=== PATIENT | male | born 1965 | race Caucasian/White ===

== ENCOUNTER 2022-07-21 15:50 | Outpatient (REF) | payer OTHER, SELFPAY ==
--- NOTE | ~2022-07-21 | XR_ITS ---
EXAMINATION: XR BILATERAL HIPS WITH AP PELVIS CLINICAL INFORMATION: Pain COMPARISON: Previous left hip x-ray May 2018 TECHNIQUE: 2 views views of each hip were obtained. FINDINGS: Right: Bone alignment is normal. No fracture or dislocation. There is moderate right hip arthritis with joint space narrowing and osteophyte formation. Soft tissues are unremarkable. Left: Bone alignment is normal. No fracture or dislocation. There is severe left hip arthritis with joint space narrowing and osteophyte formation. This has increased from May 2016 exam. Soft tissues are unremarkable. XR/XR hips EMILY min 3V IMPRESSION: Bilateral hip arthritis, left greater than right.
--- NOTE | ~2022-07-21 | XR_ITS ---
EXAMINATION: XR KNEE AP STANDING CLINICAL INFORMATION: Pain COMPARISON: None TECHNIQUE: AP and lateral view of the knees was obtained. FINDINGS: Right: Bone alignment is normal. No fracture or dislocation. Mild joint space narrowing at the medial femoral tibial joint. Small osteophytes at the patellofemoral joint. Small osteophyte at the quadriceps tendon insertion to the patella. No joint effusion. Left: Bone alignment is normal. No fracture or dislocation. Small osteophytes at the patellofemoral joint. No joint effusion. XR/XR knee standing BI IMPRESSION: Mild bilateral arthritis, right greater than left.
== END 2022-07-21 15:51 | disposition home or self-care (01) ==
LOC: HO.HMGCX 15:50
PROVIDERS: PCP Internal Medicine; Visit Provider Internal Medicine
DX: M25.551 Pain in right hip (principal); M25.552 Pain in left hip; M25.561 Pain in right knee; M25.562 Pain in left knee
CPT/HCPCS: 73522; 73565

== ENCOUNTER 2023-06-27 06:01 | Outpatient (REF) | payer OTHER, SELFPAY ==
[2023-06-27 12:00] LABS: Estimated Average Glucose 143 mg/dL; Hemoglobin A1c % 6.6 % (<6.0)
[2023-06-27 12:08] LABS: Alanine Aminotransferase 20 U/L (0-40); Anion Gap 11 (12-20); Aspartate Amino Transferase 17 U/L (5-37); Blood Urea Nitrogen 16 mg/dL (9-16); Calcium 9.2 mg/dL (8.4-10.2); Carbon Dioxide 29 mmol/L (22-29); Chloride 107 mmol/L (96-108); Cholesterol 131 mg/dL (<200); Estimated Glomerular Filt Rate > 60; Glucose Fasting 109 mg/dL (60-99); HDL Cholesterol 50 mg/dL (>40); LDL Cholesterol Calculated 67 mg/dL (<100); Potassium 4.6 mmol/L (3.3-5.1); Sodium 142 mmol/L (135-145); Triglycerides 70 mg/dL (<150)
== END 2023-06-27 06:02 | disposition home or self-care (01) ==
LOC: HO.HMGCLDS 06:01
PROVIDERS: PCP Internal Medicine; Visit Provider Internal Medicine
DX: E66.01 Morbid (severe) obesity due to excess calories (principal); I10 Essential (primary) hypertension; E78.5 Hyperlipidemia, unspecified; E11.65 Type 2 diabetes mellitus with hyperglycemia
CPT/HCPCS: 36415; 80048; 80061; 83036; 84450; 84460

== ENCOUNTER 2023-07-04 13:04 | Outpatient (AMB) | payer OTHER, SELFPAY ==
[2023-07-04 13:11] VITALS: BP 126/80; PULSE 83; O2SAT 97; BMI 38.8
--- NOTE | 2023-07-04 13:11 | MHC.PC.OV ---
Vital Signs 07/04/23 13:11 Height 5 ft 4 in Weight 226 lb BMI 38.8 BP 126/80 Blood Pressure Location Lt brachial Position Sitting Pulse 83 Pulse Source Pulse Oximeter Pulse Oximetry (%) 97 Oxygen Delivery Method Room Air Intake Visit Reasons: Followup diabetes, labs Intake Note: Pt is here today for a follow up visit on DM and labs. Allergies Codeine Adverse Reaction (Unknown, Uncoded 07/04/23 13:14) nausea and vomiting Medication List - Last Reconciled 07/04/23 by Sandy Orosco MD aspirin (Adult Low Dose Aspirin) 81 mg PO DAILY blood sugar diagnostic ([employer] Verio test strips) Check blood sugar as directed twice daily before meals empagliflozin (Jardiance) 25 mg PO QAM lancets ([employer] Delica Plus Lancet) test blood sugar twice a day lisinopril 10 mg PO DAILY metformin 1,000 mg PO BID 90 days pravastatin 10 mg PO BEDTIME Tobacco use date assessed: 07/04/23 Dental Screening Dental Screen Date: 07/04/23 Did you have a dental visit in the last 12 months?: Yes Did you have a dental problem in the last 6 months where you did not have access to dental care?: No Was dental information given to patient?: Patient has dentist HPI Followup diabetes, labs HPI Details 57-year-old male with diabetes mellitus, hyperlipidemia, obesity osteoarthritis in hips, here today for follow-up. He has been compliant with taking his medications, with recent hemoglobin A1c now at 6.7% and fasting lipids are within normal limits. He has been compliant with taking his medication and has been following recommended diet. He is scheduled for his left total hip arthroplasty at [facility] in August [address] Kenyon. He is up-to-date with his diabetes retinopathy screening. Up-to-date with his vaccinations including pneumonia vaccine and COVID booster, has not yet had his flu shot. [facility] Medical History Controlled diabetes mellitus type II without complication Osteoarthritis, hip, bilateral Knee pain, bilateral Hip pain, bilateral Morbid obesity Essential hypertension Dyslipidemia Surgical History Hx of umbilical hernia repair Family History Father No problems noted. Brother No problems noted. Mother No problems noted. Housing: House Alcohol intake: never Patient Tobacco Use Status: Never used Tobacco e-Cigarette/Vaping Use: Never Used Second Hand Smoke Exposure: No service: No Current occupational status: employed Cognitive needs: No Hearing needs: No Vision needs: Yes Questionnaire PHQ-9 Over the last 2 weeks, how often have you been bothered by any of the following problems? Depression Screening Interpretation: Negative Depression Screening Done: Yes Source: Developed by Drs. Real Page, Roxie Victor, Zbigniew Ceja and colleagues, with an educational victorino from [employer]. Thrive Questionnaire Date Thrive assessed: 12/16/22 AISHA-7 AMB Questionnaire AISHA-7 Date AISHA - 7 assessed: 12/16/22 Source: Developed by Drs. Real Page, Roxie Victor, Zbigniew Ceja and colleagues, with an educational victorino from [employer]. Review of Systems Const Denies malaise and Denies weakness Eyes Details: goes to [employer] Denies change in vision ENT Denies dysphagia, Denies dizziness, Denies dry mouth, Denies otalgia, Denies hoarseness, Denies epistaxis, Denies nasal congestion, Denies odynophagia, Denies post nasal drip and Denies sore throat Card Denies chest pain, Denies chest pain with activity, Denies irregular heart rhythm, Denies lightheadedness, Denies palpitations, Denies dyspnea and Denies dyspnea on exertion Resp Denies cough, Denies pain on inspiration, Denies dyspnea, Denies dyspnea on exertion and Denies wheezing GI Denies abdominal pain, Denies melena, Denies hematochezia, Denies change in bowel habits, Denies dysphagia, Denies heartburn, Denies nausea and Denies odynophagia Denies hematuria, Denies oliguria, Denies difficulty urinating, Denies dysuria, Denies penile discharge, Denies testicular mass, Denies urinary hesitancy and Denies urinary incontinence Musc Reports as per HPI and Denies tingling Skin/Breast Reports system reviewed and no additional complaints, except as documented Neuro Reports no additional complaints, Denies dizziness, Denies lack of coordination, Denies focal weakness, Denies Other visual disturbances, Denies convulsions, Denies tingling, Denies paresthesias and Denies weakness Psych Reports no additional complaints Endo Denies cold intolerance, Denies polyphagia, Denies polydipsia, Denies polyuria and Denies palpitations Jey/Lymph Denies easy bleeding and Denies easy bruising Aller/Immun Denies seasonal rhinorrhea and Denies wheezing Physical exam (Primary Care) Vital Signs: Last Vital Signs Pulse 83 07/04/23 13:11 BP 126/80 07/04/23 13:11 Pulse Ox 97 07/04/23 13:11 Oxygen Delivery Method Room Air 07/04/23 13:11 BMI result Body Mass Index 38.8 BMI Assessment/Plan discussion: High BMI High, discussed plan: lifestyle, weight reduction, dietary and physical activity Tobacco/Smoking Status: Tobacco use Status Tobacco use date assessed 07/04/23 07/04/23 13:16 Patient Tobacco Use Status Never used Tobacco 07/04/23 13:16 e-Cigarette/Vaping Use Never Used 07/04/23 13:16 Depression Screening Interpretation: Negative Thrive Assessment: Date of Thrive Assessment Date Thrive assessed 12/16/22 07/04/23 13:16 Const General: comfortable and alert Nutritional Appearance: obese morbidly obese Eyes Other: [place] palpebral conjunctiva, anicteric, extraocular muscles full and intact Neck Neck: Yes full ROM, Yes no lymphadenopathy and Yes supple Thyroid: Thyroid normal Resp Effort & Inspection: normal respiratory effort and able to speak in complete sentences Auscultation: clear to auscultation bilaterally Cardio Rate: regular rate Rhythm: regular rhythm Heart sounds: S1 normal heart sound present and S2 normal heart sound present GI Inspection: Yes obesity Palpation (GI): Soft to palpation, nontender and no guarding Auscultation: normal bowel sounds General: Yes CVA tenderness Male General Exam: Yes normal external exam Back/Spine/Pelvis Back: CVA tenderness and No back tenderness Skin General skin exam: no rashes or lesions noted Neuro Other: alert oriented x3, no acute cardiorespiratory distress ambulatory with normal gait General: normal sensation to monofilament Extrem General: Yes full ROM, Yes no joint enlargement and Yes normal gait Psych Appearance: grossly normal Mental Status: mental status grossly normal Speech and movement: Normal speech and movement present Affect: normal affect Attitude: cooperative Thought process: Normal thought process present Thought content: Normal thought content present Office Procedures Flu Questionnaire Does the patient have a severe egg allergy?: No Does the patient have severe life threatening allergies?: No Does the patient have a fever or illness today?: No Has the patient ever had Guillain-Creighton Syndrome?: No Has the patient ever had any past reaction to a flu shot?: No Immunizations flu vacc [id number] 6mos up(PF) 60 mcg(15 mcgx4)/0.5 mL IM syringe Performing Provider: Sandy Orosco MD Performing Location: [facility] Administered by: Lisette Sheridan CMA on 07/04/23 13:47 Dose Route Admin Location Dispensed Lot Number Expiration Date 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 IM Left Deltoid 0.5 mL [id number] 02/11/24 [id number] [employer] VIS Given Date VIS Provided VIS Publication Date 07/04/23 Single Vaccine 21 Eligibility Eligibility Date Funding Source Not VFC Eligible 07/04/23 Private Results Reviewed Results Reviewed: PEC : [id number] JAVIER: 06/27/23 STATUS: COMP REQ : [id number] RECD: 06/27/[address]: Sandy Orosco MD COMP: 06/27/23 ENTERED: 06/27/23-[address]: ORDERED: Met Prof Fast, AST, ALT, Lipid Panel Test Result Flag Reference Site Sodium 142 135-145 mmol/L Potassium 4.6 3.3-5.1 mmol/L CL 107 96-108 mmol/L CO2 29 22-29 mmol/L Gap 11 L 12-20 BUN 16 9-16 mg/dL Creat 0.82 0.5-1.4 mg/dL EGFR > 60 NOTE: For -Ind[place] individuals, multiply the result by 1.210. Chronic Kidney Disease: Estimated GFR < 60 mL/min/1.73m2 Severe Kidney Disease: Estimated GFR < 15 mL/min/1.73m2 FBS 109 H 60-99 mg/dL A fasting glucose from 100-125 mg/dl is considered impaired (pre-diabetes). CA 9.2 8.4-10.2 mg/dL AST (GOT) 17 5-37 U/L ALT (GPT) 20 0-40 U/L Triglyceride 70 <150 mg/dL Desirable Triglyceride: less than 150 mg/dL Borderline High Triglyceride 150-199 mg/dL High Triglyceride: 200-499 mg/dL Very High Triglyceride: greater than or equal to 5OO mg/dL Cholesterol 131 <200 mg/dL Desirable Cholesterol: less than 200 mg/dL Borderline High Cholesterol: 200-239 mg/dL High Cholesterol: greater than 239 mg/dL LDL Calculated 67 <100 mg/dL Desirable LDL: less than 100 mg/dL Near Optimal/Above Optimal LDL: 110-129 mg/dL Borderline High LDL: 130-159 mg/dL High LDL: 160-189 mg/dL Very High LDL: greater than or equal to 190 mg/dL HDL 50 >40 mg/dL Desirable HDL: greater than 40 mg/dL Note: This HDL assay may give artificially low results in patients with liver disease. Laboratory Tests 06/27/23 06:09 Estimat Average Glucose 143 Hemoglobin A1c % 6.6 H Assessment and Plan Assessment & Plan (1) Controlled diabetes mellitus type II without complication: Code(s): E11.9 - Type 2 diabetes mellitus without complications Plan: Recent lab results reviewed with patient, with sugar and hemoglobin A1c stable and at goal. continue to check fasting blood sugar at home, maintain log and bring to next appointment for review. Reinforced diabetic diet and regular exercise with patient. Counseled regarding importance of yearly diabetes retinopathy screening, currently up-to-date. Patient advised to inspect feet daily, for any signs of injury, callus or infection. Compliance with diet and regular exercise again stressed. Blood pressure goal is less than 130/80, goal LDL is less than 100 and goal hemoglobin A1c is less than 7% follow-up appointment made in--3-months, after fasting labs done. Flu vaccine given today (2) Osteoarthritis, hip, bilateral: Code(s): M16.0 - Bilateral primary osteoarthritis of hip Plan: Scheduled for left total hip arthroplasty August [address] Kenyon (3) Morbid obesity: Code(s): E66.01 - Morbid (severe) obesity due to excess calories Plan: Discussed need to increase activity and wt reduction. Recommended focusing on improving your health instead of dieting. : Eat Mediterranean diet, limit foods high in fat, sugar, and calories, eat slowly, pay attention to portion sizes, plan your meals ahead of time, start regular physical activity 150 minutes of moderate intensity exercise or 90 minutes/week of vigorous exercise and increase water intake. (4) Essential hypertension: Code(s): I10 - Essential (primary) hypertension Plan: Blood pressure at goal of less than 130/80. Continue with current medication. Reinforced importance of following a low sodium diet, getting regular exercise, and lowering stress levels. (5) Dyslipidemia: Code(s): E78.5 - Hyperlipidemia, unspecified Plan: Reviewed recent fasting lipid profile with patient with levels within normal . Continue with pravastatin 10 mg at bedtime , in addition to adherence to low-cholesterol diet and regular exercise, at least 30 minutes 3 to 4 times a week. Advised patient to make healthy food choices, eat more fruits, vegetables, whole grains, wild caught fish and low-fat dairy. Limit amount of meat and fried or fatty food products, as well as processed foods and fast foods. Follow-up scheduled with repeat fasting lipid panel in 3 months. Orders: Orders Lipid Panel 10/02/23 E11.9 - Type 2 diabetes mellitus without complications, E66.01 - Morbid (severe) obesity due to excess calories, E78.5 - Hyperlipidemia, unspecified, I10 - Essential (primary) hypertension, M16.0 - Bilateral primary osteoarthritis of hip Alanine Aminotransferase 10/02/23 E11.9 - Type 2 diabetes mellitus without complications, E66.01 - Morbid (severe) obesity due to excess calories, E78.5 - Hyperlipidemia, unspecified, I10 - Essential (primary) hypertension, M16.0 - Bilateral primary osteoarthritis of hip Microalbumin, Random (w Creat) 10/02/23 E11.9 - Type 2 diabetes mellitus without complications, E66.01 - Morbid (severe) obesity due to excess calories, E78.5 - Hyperlipidemia, unspecified, I10 - Essential (primary) hypertension, M16.0 - Bilateral primary osteoarthritis of hip Influenza [id number] Immunization Today Z23 - Encounter for immunization Hemoglobin A1c 10/02/23 E11.9 - Type 2 diabetes mellitus without complications, E66.01 - Morbid (severe) obesity due to excess calories, E78.5 - Hyperlipidemia, unspecified, I10 - Essential (primary) hypertension, M16.0 - Bilateral primary osteoarthritis of hip Aspartate Amino Transferase 02/19/24 E11.9 - Type 2 diabetes mellitus without complications, E66.01 - Morbid (severe) obesity due to excess calories, E78.5 - Hyperlipidemia, unspecified, I10 - Essential (primary) hypertension, M16.0 - Bilateral primary osteoarthritis of hip Basic Metabolic Panel Fasting 10/02/23 E11.9 - Type 2 diabetes mellitus without complications, E66.01 - Morbid (severe) obesity due to excess calories, E78.5 - Hyperlipidemia, unspecified, I10 - Essential (primary) hypertension, M16.0 - Bilateral primary osteoarthritis of hip Coding Level of Care Code Est Pt Level 4 (03512) Diagnoses Controlled diabetes mellitus type II without complication E11.9 Osteoarthritis, hip, bilateral M16.0 Morbid obesity E66.01 Essential hypertension I10 Dyslipidemia E78.5
== END 2023-07-04 13:52 | disposition home or self-care (01) ==
PROVIDERS: PCP Internal Medicine; Visit Provider Internal Medicine
DX: E11.9 Type 2 diabetes mellitus without complications (principal); E66.01 Morbid (severe) obesity due to excess calories; Z68.38 Body mass index [BMI] 38.0-38.9, adult; Z23 Encounter for immunization; M16.0 Bilateral primary osteoarthritis of hip; I10 Essential (primary) hypertension; E78.5 Hyperlipidemia, unspecified
CPT/HCPCS: 90471; 90686; 99214

== ENCOUNTER 2023-10-12 06:02 | Outpatient (REF) | payer OTHER, SELFPAY ==
[2023-10-12 10:48] LABS: Estimated Average Glucose 120 mg/dL; Hemoglobin A1c % 5.8 % (<6.0)
[2023-10-12 10:53] LABS: Alanine Aminotransferase 21 U/L (0-40); Anion Gap 14 (12-20); Aspartate Amino Transferase 18 U/L (5-37); Blood Urea Nitrogen 17 mg/dL (9-16); Carbon Dioxide 26 mmol/L (22-29); Chloride 106 mmol/L (96-108); Cholesterol 131 mg/dL (<200); Estimated Glomerular Filt Rate > 60; Glucose Fasting 102 mg/dL (60-99); HDL Cholesterol 51 mg/dL (>40); LDL Cholesterol Calculated 69 mg/dL (<100); Potassium 3.8 mmol/L (3.3-5.1); Sodium 142 mmol/L (135-145); Triglycerides 59 mg/dL (<150)
[2023-10-12 11:10] LABS: PSA,Total (Free>4and<10) 0.85 ng/mL (0.00-4.00)
[2023-10-12 11:19] LABS: Creatinine Urine 93.24 mg/dL; Microalbum/Creatinine Ratio Ur 27.8 ug/mg cr (<30)
== END 2023-10-12 06:03 | disposition home or self-care (01) ==
LOC: HO.HMGCLDS 06:02
PROVIDERS: PCP Internal Medicine; Visit Provider Internal Medicine
DX: Z12.5 Encounter for screening for malignant neoplasm of prostate (principal); E11.65 Type 2 diabetes mellitus with hyperglycemia; E66.01 Morbid (severe) obesity due to excess calories; I10 Essential (primary) hypertension; E78.5 Hyperlipidemia, unspecified; M16.0 Bilateral primary osteoarthritis of hip
CPT/HCPCS: 36415; 80048; 80061; 82043; 82570; 83036; 84153; 84450; 84460

== ENCOUNTER 2023-10-20 08:08 | Outpatient (AMB) | payer OTHER, SELFPAY ==
--- NOTE | 2023-10-20 08:29 | MHC.OFFWIV ---
Intake Vital Signs 10/20/23 08:30 Height 5 ft 4 in Weight 221 lb BMI 37.9 BP 140/90 H Blood Pressure Location Lt brachial Position Sitting Pulse 105 H Pulse Source Pulse Oximeter Temp 98.3 F Temp Source Temporal Artery Scan Pulse Oximetry (%) 97 Oxygen Delivery Method Room Air Intake Visit Reasons: EP Itching & swelling/Recent on Paxlovid (masked) Intake Note: pt is here today for itching swelling recent on paxlovid started yesterday Patient Tobacco Use Status: Never used Tobacco Allergies Codeine Adverse Reaction (Unknown, Uncoded 07/04/23 13:14) nausea and vomiting Do you need a note to return to daycare/school/sports/work: No HPI HPI Comments History of Present Illness Details 57 y/o male patient who presents to the walk in clinic with c/o generalized pruritus and body swelling. Denies SOB, CP and facial swelling. Pt completed Paxlovid Mon. Symptoms started yesterday. [facility] Medical History Controlled diabetes mellitus type II without complication Osteoarthritis, hip, bilateral Knee pain, bilateral Hip pain, bilateral Morbid obesity Essential hypertension Dyslipidemia Surgical History Hx of umbilical hernia repair Family History Father No problems noted. Brother No problems noted. Mother No problems noted. Social History Housing: House Alcohol intake: never Patient Tobacco Use Status: Never used Tobacco e-Cigarette/Vaping Use: Never Used Second Hand Smoke Exposure: No service: No Current occupational status: employed Cognitive needs: No Hearing needs: No Vision needs: Yes Review of Systems Const All systems reviewed & are unremarkable except as noted in HPI and below Physical Exam Vital Signs: Last Vital Signs Temp 98.3 F 10/20/23 08:30 Pulse 105 H 10/20/23 08:30 BP 140/90 H 10/20/23 08:30 Pulse Ox 97 10/20/23 08:30 Oxygen Delivery Method Room Air 10/20/23 08:30 BMI result Body Mass Index 37.9 Const General: comfortable and no acute distress Nutritional Appearance: obese Orientation/consciousness: patient oriented x3 Skin Other: No swelling or rash seen. Lesions: no lesions Rashes: no rashes Neuro General: patient oriented x3 Assessment & Plan Assessment & Plan (1) Generalized pruritus: Code(s): L29.9 - Pruritus, unspecified Plan: - Advised OTC Anti-histamine such as Benadrly, claritin etc Coding Level of Care Code Est Pt Level 3 (72608) Diagnoses Generalized pruritus L29.9 Time Spent (min) 15
[2023-10-20 08:30] VITALS: BP 140/90; PULSE 105; TEMP 36.8; O2SAT 97; BMI 37.9
== END 2023-10-20 09:34 | disposition home or self-care (01) ==
PROVIDERS: PCP Internal Medicine; Visit Provider Nurse Practitioner Family
DX: L29.9 Pruritus, unspecified (principal)
CPT/HCPCS: 99213

== ENCOUNTER 2023-11-09 08:54 | Outpatient (AMB) | payer OTHER, SELFPAY ==
--- NOTE | 2023-11-09 08:45 | MHC.PC.OV ---
Vital Signs 11/09/23 08:58 11/09/23 09:08 Height 5 ft 4 in Weight 226 lb BMI 38.8 BP 144/90 H 135/80 Blood Pressure Location Lt brachial Lt brachial Position Sitting Sitting Pulse 105 H 95 Pulse Source Pulse Oximeter Pulse Oximeter Pulse Oximetry (%) 95 Oxygen Delivery Method Room Air Intake Visit Reasons: 4 Month F/U Intake Note: Pt is here today for a 4 month follow up. Allergies Codeine Adverse Reaction (Unknown, Uncoded 11/09/23 09:18) nausea and vomiting Medication List - Last Reconciled 11/09/23 by Sandy Orosco MD aspirin (Adult Low Dose Aspirin) 81 mg PO DAILY blood sugar diagnostic ([email or web address] Verio test strips) Check blood sugar as directed twice daily before meals empagliflozin (Jardiance) 25 mg PO QAM lancets ([employer] Delica Plus Lancet) test blood sugar twice a day lisinopril 10 mg PO DAILY metformin 1,000 mg PO BID 90 days pravastatin 10 mg PO BEDTIME Tobacco use date assessed: 11/09/23 Dental Screening Dental Screen Date: 11/09/23 Did you have a dental visit in the last 12 months?: Yes Did you have a dental problem in the last 6 months where you did not have access to dental care?: No Was dental information given to patient?: Patient has dentist HPI 4 Month F/U HPI Details 58-year-old male with diabetes mellitus, hypertension hyperlipidemia, here today for his follow-up. He has been compliant with his diet and medications, and has started walking again after successful hip replacement surgery done August 2023. He goes to [facility] for his diabetes retinopathy screening, overdue, states he will schedule an appointment to be seen this year. Recent fasting labs showed hemoglobin A1c at goal as well as lipids. Has been feeling well with no complaints at present time. [facility] Medical History (Updated 11/09/23 @ 09:20 by Sandy Orosco MD) Controlled diabetes mellitus type II without complication Osteoarthritis, hip, bilateral Knee pain, bilateral Hip pain, bilateral Morbid obesity Essential hypertension Dyslipidemia Surgical History (Updated 11/09/23 @ 09:22 by Sandy Orosco MD) S/P total left hip arthroplasty Hx of umbilical hernia repair Family History Father No problems noted. Brother No problems noted. Mother No problems noted. Social History Housing: House Alcohol intake: never Patient Tobacco Use Status: Never used Tobacco e-Cigarette/Vaping Use: Never Used Second Hand Smoke Exposure: No service: No Current occupational status: employed Cognitive needs: No Hearing needs: No Vision needs: Yes Questionnaire PHQ-9 Over the last 2 weeks, how often have you been bothered by any of the following problems? 1. Little interest or pleasure in doing things: not at all 2. Feeling down, depressed, or hopeless: not at all 3. Trouble falling or staying asleep, or sleeping too much: not at all 4. Feeling tired or having little energy: not at all 5. Poor appetite or overeating: not at all 6. Feeling bad about yourself - or that you are a failure or have let yourself or your family down: not at all 7. Trouble concentrating on things, such as reading the newspaper or watching television: not at all 8. Moving or speaking so slowly that other people could have noticed. Or the opposite - being so fidgety or restless that you have been moving around a lot more than usual: not at all 9. Thoughts that you would be better off or of hurting yourself in some way: not at all Total score: 0 Depression Screening Interpretation: Negative Depression Screening Done: Yes 47937 - PHQ-9 Billing: Yes Source: Developed by Drs. Real Page, Roxie Victor, Zbigniew Ceja and colleagues, with an educational victorino from [employer]. Thrive Questionnaire Date Thrive assessed: 11/09/23 I am a: Patient What is your living situation today?: I have a steady place to live Within the past 12 months, did the food you bought not last and you didn't have the money to get more?: Never true Within the past 12 months, did you worry whether your food would run out before you got money to buy more?: Never true Do you have trouble paying for medicines?: No Do you have trouble getting transportation to medical appointments?: No Do you have trouble paying your heating and electricity bill?: No Do you have trouble taking care of your child, family member or friend?: No Do you have trouble with day-to-day activities such as bathing, preparing meals, shopping, managing finances, etc.?: No Are you currently unemployed and looking for a job?: No Are you interested in more education?: No THRIVE Score: 0 AUDIT C Alcohol Use Questionnaire (AUDIT-C) 1. How often do you have a drink containing alcohol?: Never 3. How often do you have six or more drinks on one occasion?: Never Total Score: 0 Score Reviewed/Action Taken: Yes AISHA-7 AMB Questionnaire AISHA-7 Date AISHA - 7 assessed: 11/09/23 Feeling nervous, anxious, or on edge: 0 = Not at all Not being able to stop or control worryin = Not at all Worrying too much about different things: 0 = Not at all Trouble relaxin = Not at all Being so restless that it is hard to sit still: 0 = Not at all Becoming easily annoyed or irritable: 0 = Not at all Feeling afraid as if something awful might happen: 0 = Not at all Total AISHA-7 score (0-4 normal; 5-9 mild; 10-14 moderate; 15-21 severe): 0 Source: Developed by Drs. Real Page, Roxie Victor, Zbigniew Ceja and colleagues, with an educational victorino from [employer]. AISHA-7 Assessment Billing AISHA-7 Assessment Tool: AISHA-7 Assessment 11202 Review of Systems Const Denies malaise and Denies weakness Eyes Details: goes to [facility] Denies change in vision ENT Denies dysphagia, Denies dizziness, Denies dry mouth, Denies otalgia, Denies hoarseness, Denies epistaxis, Denies nasal congestion, Denies odynophagia, Denies post nasal drip and Denies sore throat Card Denies chest pain, Denies chest pain with activity, Denies irregular heart rhythm, Denies lightheadedness, Denies palpitations, Denies dyspnea and Denies dyspnea on exertion Resp Denies cough, Denies pain on inspiration, Denies dyspnea, Denies dyspnea on exertion and Denies wheezing GI Denies abdominal pain, Denies melena, Denies hematochezia, Denies change in bowel habits, Denies dysphagia, Denies heartburn, Denies nausea and Denies odynophagia Denies hematuria, Denies oliguria, Denies difficulty urinating, Denies dysuria, Denies penile discharge, Denies testicular mass, Denies urinary hesitancy and Denies urinary incontinence Musc Denies arthralgias, Denies joint swelling, Denies limited range of motion and Denies tingling Skin/Breast Denies lesions and Denies rash Neuro Reports no additional complaints, Denies dizziness, Denies lack of coordination, Denies focal weakness, Denies Other visual disturbances, Denies convulsions, Denies tingling, Denies paresthesias and Denies weakness Psych Reports no additional complaints Endo Denies cold intolerance, Denies polyphagia, Denies polydipsia, Denies polyuria and Denies palpitations Jey/Lymph Denies easy bleeding and Denies easy bruising Aller/Immun Denies seasonal rhinorrhea and Denies wheezing Physical exam (Primary Care) Vital Signs: Last Vital Signs Pulse 95 11/09/23 09:08 BP 135/80 11/09/23 09:08 Pulse Ox 95 11/09/23 08:58 Oxygen Delivery Method Room Air 11/09/23 08:58 BMI result Body Mass Index 38.8 BMI Assessment/Plan discussion: High BMI High, discussed plan: lifestyle, weight reduction, dietary and physical activity Tobacco/Smoking Status: Tobacco use Status Tobacco use date assessed 11/09/23 11/09/23 09:00 Patient Tobacco Use Status Never used Tobacco 11/09/23 08:46 e-Cigarette/Vaping Use Never Used 11/09/23 08:46 PHQ-9: PHQ-9 Score PHQ-9: Total score 0 11/09/23 09:24 Depression Screening Interpretation: Negative Thrive Assessment: Date of Thrive Assessment Date Thrive assessed 11/09/23 11/09/23 09:24 Const General: comfortable and alert Nutritional Appearance: obese morbidly obese Eyes Other: [place] palpebral conjunctiva, anicteric, extraocular muscles full and intact Neck Neck: Yes full ROM, Yes no lymphadenopathy and Yes supple Thyroid: Thyroid normal Resp Effort & Inspection: normal respiratory effort and able to speak in complete sentences Auscultation: clear to auscultation bilaterally Cardio Rate: regular rate Rhythm: regular rhythm Heart sounds: S1 normal heart sound present and S2 normal heart sound present GI Inspection: Yes obesity Palpation (GI): Soft to palpation, nontender and no guarding Auscultation: normal bowel sounds General: Yes CVA tenderness Male General Exam: Yes normal external exam Back/Spine/Pelvis Back: CVA tenderness and No back tenderness Skin General skin exam: no rashes or lesions noted Neuro Other: alert oriented x3, no acute cardiorespiratory distress ambulatory with normal gait General: normal sensation to monofilament Extrem General: Yes full ROM, Yes no joint enlargement and Yes normal gait Psych Appearance: grossly normal Mental Status: mental status grossly normal Speech and movement: Normal speech and movement present Affect: normal affect Attitude: cooperative Thought process: Normal thought process present Thought content: Normal thought content present Results Reviewed Results Reviewed: Laboratory Tests 10/12/23 06:13 Estimat Average Glucose 120 Hemoglobin A1c % 5.8 Urine Creatinine 93.24 Urine Microalbumin 26.0 Microalb/Creat Ratio 27.8 Name: Aron Mar Age/Sex: 57/M : 1965 Unit#: [id number] Attend Dr: Sandy Orosco MD Re10/12/23 Status: DEP REF Location: [facility] Disch: SPEC : [id number] JAVIER: 10/12/23 STATUS: COMP REQ : [id number] RECD: 10/12/23-[address]: Sandy Orosco MD COMP: 10/12/23 ENTERED: 10/12/[address]: ORDERED: Met Prof Fast, AST, ALT, Lipid Panel Test Result Flag Reference Sodium 142 135-145 mmol/L Potassium 3.8 3.3-5.1 mmol/L CL 106 96-108 mmol/L CO2 26 22-29 mmol/L Gap 14 12-20 BUN 17 H 9-16 mg/dL Creat 0.84 0.5-1.4 mg/dL EGFR > 60 NOTE: For -[place] individuals, multiply the result by 1.210. Chronic Kidney Disease: Estimated GFR < 60 mL/min/1.73m2 Severe Kidney Disease: Estimated GFR < 15 mL/min/1.73m2 FBS 102 H 60-99 mg/dL A fasting glucose from 100-125 mg/dl is considered impaired (pre-diabetes). CA 9.0 8.4-10.2 mg/dL AST (GOT) 18 5-37 U/L ALT (GPT) 21 0-40 U/L Triglyceride 59 <150 mg/dL Desirable Triglyceride: less than 150 mg/dL Borderline High Triglyceride 150-199 mg/dL High Triglyceride: 200-499 mg/dL Very High Triglyceride: greater than or equal to 5OO mg/dL Cholesterol 131 <200 mg/dL Desirable Cholesterol: less than 200 mg/dL Borderline High Cholesterol: 200-239 mg/dL High Cholesterol: greater than 239 mg/dL LDL Calculated 69 <100 mg/dL Desirable LDL: less than 100 mg/dL Near Optimal/Above Optimal LDL: 110-129 mg/dL Borderline High LDL: 130-159 mg/dL High LDL: 160-189 mg/dL Very High LDL: greater than or equal to 190 mg/dL HDL 51 >40 mg/dL Desirable HDL: greater than 40 mg/dL Assessment and Plan Assessment & Plan (1) Controlled diabetes mellitus type II without complication: Code(s): E11.9 - Type 2 diabetes mellitus without complications Plan: Diabetes mellitus controlled with hemoglobin A1c now at 5.8%, continued on metformin a 1000 mg 1 tablet twice a day and empagliflozin 25 mg 1 tablet in a.m., continue with adherence to diabetic diet and start exercising regularly, up-to-date with all his vaccinations, will be scheduling an appointment with [facility] chief clinical officer for his routine diabetes retinopathy screening (2) Essential hypertension: Code(s): I10 - Essential (primary) hypertension Plan: Continue with lisinopril 10 mg 1 day Reinforced importance of following a low sodium diet, getting regular exercise, and lowering stress levels. (3) Dyslipidemia: Code(s): E78.5 - Hyperlipidemia, unspecified Plan: Fasting lipids are within normal limits, continued on pravastatin 10 mg at bedtime, continue with following recommended diet and reinforced importance of getting regular exercise. (4) Morbid obesity: Code(s): E66.01 - Morbid (severe) obesity due to excess calories Plan: Discussed need to increase activity and wt reduction. Recommended focusing on improving your health instead of dieting. : Eat Mediterranean diet, limit foods high in fat, sugar, and calories, eat slowly, pay attention to portion sizes, plan your meals ahead of time, start regular physical activity 150 minutes of moderate intensity exercise or 90 minutes/week of vigorous exercise Orders: Orders Hemoglobin A1c 02/12/24 E11.9 - Type 2 diabetes mellitus without complications, E66.01 - Morbid (severe) obesity due to excess calories, E78.5 - Hyperlipidemia, unspecified, I10 - Essential (primary) hypertension Alanine Aminotransferase 02/12/24 E11.9 - Type 2 diabetes mellitus without complications, E66.01 - Morbid (severe) obesity due to excess calories, E78.5 - Hyperlipidemia, unspecified, I10 - Essential (primary) hypertension Aspartate Amino Transferase 02/12/24 E11.9 - Type 2 diabetes mellitus without complications, E66.01 - Morbid (severe) obesity due to excess calories, E78.5 - Hyperlipidemia, unspecified, I10 - Essential (primary) hypertension Lipid Panel 02/12/24 E11.9 - Type 2 diabetes mellitus without complications, E66.01 - Morbid (severe) obesity due to excess calories, E78.5 - Hyperlipidemia, unspecified, I10 - Essential (primary) hypertension Basic Metabolic Panel Fasting 02/12/24 E11.9 - Type 2 diabetes mellitus without complications, E66.01 - Morbid (severe) obesity due to excess calories, E78.5 - Hyperlipidemia, unspecified, I10 - Essential (primary) hypertension Coding Level of Care Code Est Pt Level 4 (14888) Diagnoses Controlled diabetes mellitus type II without complication E11.9 Essential hypertension I10 Dyslipidemia E78.5 Morbid obesity E66.01 Additional Codes AISHA-7 Assessment Billing - AISHA-7 Assessment Tool: AISHA-7 Assessment 68430 ([id number])
[2023-11-09 08:58] VITALS: BP 144/90; PULSE 105; O2SAT 95; BMI 38.8
[2023-11-09 09:08] VITALS: BP 135/80; PULSE 95
== END 2023-11-09 10:11 | disposition home or self-care (01) ==
PROVIDERS: PCP Internal Medicine; Visit Provider Internal Medicine
DX: E11.69 Type 2 diabetes mellitus with other specified complication (principal); E66.01 Morbid (severe) obesity due to excess calories; Z68.38 Body mass index [BMI] 38.0-38.9, adult; I10 Essential (primary) hypertension; E78.5 Hyperlipidemia, unspecified
CPT/HCPCS: 99214

== ENCOUNTER 2024-03-04 06:01 | Outpatient (REF) | payer OTHER, SELFPAY ==
[2024-03-04 10:25] LABS: Estimated Average Glucose 157 mg/dL; Hemoglobin A1c % 7.1 % (<6.0)
[2024-03-04 10:30] LABS: Alanine Aminotransferase 19 U/L (0-40); Anion Gap 16 (12-20); Aspartate Amino Transferase 16 U/L (5-37); Blood Urea Nitrogen 16 mg/dL (9-16); Calcium 9.3 mg/dL (8.4-10.2); Carbon Dioxide 24 mmol/L (22-29); Chloride 106 mmol/L (96-108); Cholesterol 138 mg/dL (<200); Estimated Glomerular Filt Rate > 60; Glucose Fasting 115 mg/dL (60-99); HDL Cholesterol 55 mg/dL (>40); LDL Cholesterol Calculated 70 mg/dL (<100); Potassium 3.9 mmol/L (3.3-5.1); Sodium 142 mmol/L (135-145); Triglycerides 68 mg/dL (<150)
== END 2024-03-04 06:02 | disposition home or self-care (01) ==
LOC: HO.HMGCLDS 06:01
PROVIDERS: PCP Internal Medicine; Visit Provider Internal Medicine
DX: E11.9 Type 2 diabetes mellitus without complications (principal); I10 Essential (primary) hypertension; E78.5 Hyperlipidemia, unspecified; E66.01 Morbid (severe) obesity due to excess calories
CPT/HCPCS: 36415; 80048; 80061; 83036; 84450; 84460

== ENCOUNTER 2024-06-20 13:33 | Outpatient (AMB) | payer OTHER, SELFPAY ==
[2024-06-20 14:14] VITALS: BP 142/80; PULSE 95; O2SAT 95; BMI 39.3
--- NOTE | 2024-06-20 14:14 | A.OFFPC_ITS ---
Vital Signs 06/20/24 14:14 Height 5 ft 4 in Weight 229 lb BMI 39.3 BP 142/80 H Blood Pressure Location Lt brachial Position Sitting Pulse 95 Pulse Source Pulse Oximeter Pulse Oximetry (%) 95 Oxygen Delivery Method Room Air Intake Visit Reasons: F/U Allergies Codeine Adverse Reaction (Unknown, Uncoded 06/23/24 15:42) nausea and vomiting Medication List - Last Reconciled 06/20/24 by Sandy Orosco MD aspirin (Adult Low Dose Aspirin) 81 mg PO DAILY blood sugar diagnostic ([employer] Verio test strips) Check blood sugar as directed twice daily before meals empagliflozin (Jardiance) 25 mg PO QAM lancets ([employer] Delica Plus Lancet) test blood sugar twice a day lisinopril 10 mg PO DAILY metformin 1,000 mg PO BID 90 days pravastatin 10 mg PO BEDTIME Tobacco use date assessed: 06/20/24 Dental Screening Dental Screen Date: 06/20/24 Did you have a dental visit in the last 12 months?: Yes Did you have a dental problem in the last 6 months where you did not have access to dental care?: No Was dental information given to patient?: Patient has dentist HPI F/U HPI Details 58-year-old male here today for follow-u p on his diabetes mellitus, hypertension and hyperlipidemia. Has been compliant with taking his medications, has started exercising after he had his left hip replacement, but admits to cheating on his diet . Noted to have gained weight, blood pressure elevated on today's visit, and today's hemoglobin A1c came back at 8.4%. Has not yet had his repeat fasting lipid panel checked.. [facility] Medical History (Updated 06/23/24 @ 15:46 by Sandy Orosco MD) Essential hypertension Osteoarthritis, hip, bilateral Morbid obesity Essential hypertension Dyslipidemia Surgical History S/P total left hip arthroplasty Hx of umbilical hernia repair Family History Father No problems noted. Brother No problems noted. Mother No problems noted. Social History Housing: House Alcohol intake: never Patient Tobacco Use Status: Never used Tobacco e-Cigarette/Vaping Use: Never Used Second Hand Smoke Exposure: No service: No Current occupational status: employed Cognitive needs: No Hearing needs: No Vision needs: Yes Questionnaire Thrive Questionnaire Date Thrive assessed: 11/09/23 AISHA-7 AMB Questionnaire AISHA-7 Date AISHA - 7 assessed: 11/09/23 Source: Developed by Drs. Real Page, Roxie Victor, Zbigniew Ceja and colleagues, with an educational victorino from [employer]. Review of Systems Const Denies malaise Eyes Details: goes to [employer] Denies change in vision Card Denies chest pain, Denies chest pain with activity, Denies irregular heart rhythm, Denies lightheadedness, Denies palpitations, Denies dyspnea and Denies dyspnea on exertion Resp Denies cough, Denies pain on inspiration, Denies dyspnea, Denies dyspnea on exertion and Denies wheezing GI Denies abdominal pain, Denies melena, Denies change in bowel habits, Denies heartburn and Denies nausea Reports no additional complaints Musc Denies arthralgias, Denies joint swelling and Denies limited range of motion Skin/Breast Denies lesions and Denies rash Neuro Reports no additional complaints Psych Reports no additional complaints Endo Denies cold intolerance, Denies polyphagia, Denies polydipsia, Denies polyuria and Denies palpitations Jey/Lymph Denies easy bleeding and Denies easy bruising Aller/Immun Denies seasonal rhinorrhea and Denies wheezing Physical exam (Primary Care) Vital Signs: Last Vital Signs Pulse 95 06/20/24 14:14 BP 142/80 H 06/20/24 14:14 Pulse Ox 95 06/20/24 14:14 Oxygen Delivery Method Room Air 06/20/24 14:14 BMI result Body Mass Index 39.3 BMI Assessment/Plan discussion: High BMI High, discussed plan: lifestyle, weight reduction, dietary and physical activity Tobacco/Smoking Status: Tobacco use Status Tobacco use date assessed 06/20/24 06/20/24 14:17 Patient Tobacco Use Status Never used Tobacco 06/20/24 14:17 e-Cigarette/Vaping Use Never Used 06/20/24 14:17 Thrive Assessment: Date of Thrive Assessment Date Thrive assessed 11/09/23 06/20/24 14:17 Const General: comfortable and alert Nutritional Appearance: obese morbidly obese Eyes Other: [place] palpebral conjunctiva, anicteric, extraocular muscles full and intact Neck Neck: Yes full ROM, Yes no lymphadenopathy and Yes supple Thyroid: Thyroid normal Resp Effort & Inspection: normal respiratory effort and able to speak in complete sentences Auscultation: clear to auscultation bilaterally Cardio Rate: regular rate Rhythm: regular rhythm Heart sounds: S1 normal heart sound present and S2 normal heart sound present GI Inspection: Yes obesity Palpation (GI): Soft to palpation, nontender and no guarding Auscultation: normal bowel sounds General: Yes CVA tenderness Male General Exam: Yes normal external exam Back/Spine/Pelvis Back: CVA tenderness and No back tenderness Skin General skin exam: no rashes or lesions noted Neuro Other: alert oriented x3, no acute cardiorespiratory distress ambulatory with normal gait General: normal sensation to monofilament Extrem General: Yes full ROM, Yes no joint enlargement and Yes normal gait Office Procedures Flu Questionnaire Does the patient have a severe egg allergy?: No Does the patient have severe life threatening allergies?: No Does the patient have a fever or illness today?: No Has the patient ever had Guillain-[place] Syndrome?: No Has the patient ever had any past reaction to a flu shot?: No Results AMB Hemoglobin A1c AMB Hemoglobin A1c 8.4 % Last Edit by Dorothy Cervantes CMA on 06/20/24 14:34 Immunizations Fluarix Triv [id number] (PF) 45 mcg (15 mcg x 3)/0.5 mL IM syringe Performing Provider: Sandy Orosco MD Performing Location[place] [facility] [facility] Administered by: Dorothy Cervantes CMA on 06/20/24 14:51 Dose Route Admin Location Dispensed Lot Number Expiration Date NDC [employer] 0.5 mL IM Left Deltoid 0.5 mL [id number] 02/10/25 81873-815-94 Employee Benefit Plans VIS Given Date VIS Provided VIS Publication Date 06/20/24 Single Vaccine 21 Eligibility Eligibility Date Funding Source Not [facility] Eligible 06/20/24 Private Results Reviewed Results Reviewed: Laboratory Last Values Hgb A1c (Clinic) 8.4 % (4.0-6.0) H 06/20/24 14:23 Coding Level of Care Code Est Pt Level 4 (68290) Complex EM visit Add On G2211 Diagnoses Diabetes mellitus with hyperglycemia, without long-term current use of insulin E11.65 Essential hypertension I10 Dyslipidemia E78.5 Assessment & Plan Assessment & Plan (1) Diabetes mellitus with hyperglycemia, without long-term current use of insulin: Code(s): E11.65 - Type 2 diabetes mellitus with hyperglycemia Category: Medical Plan: Diabetes mellitus poorly controlled with a hemoglobin A1c at 8.4%. Continued on Jardiance 25 mg daily in the morning, metformin a 1000 mg twice a day and added Mounjaro 2.5 mg to be injected once a week subcutaneously. Patient instructed on how to take the medication, discussed possible side effects of the medication, will want to see him for follow-up in 3 months. Flu vaccine given today (2) Essential hypertension: Code(s): I10 - Essential (primary) hypertension Category: Medical Plan: Blood pressure not at goal of less than 130/80. Will continue on lisinopril but increased dose from 10 to 20 mg daily. Reinforced importance of following a low sodium diet, getting regular exercise, and lowering stress levels. (3) Dyslipidemia: Code(s): E78.5 - Hyperlipidemia, unspecified Category: Medical Plan: Advised to get fasting labs done lipids. Continued on pravastatin 10 mg at night Orders: Orders AMB Hemoglobin A1c 06/20/24 E11.9 - Type 2 diabetes mellitus without complications Hemoglobin A1c 06/20/24 E11.65 - Type 2 diabetes mellitus with hyperglycemia, I10 - Essential (primary) hypertension Microalbumin, Random (w Creat) 06/20/24 E11.65 - Type 2 diabetes mellitus with hyperglycemia, I10 - Essential (primary) hypertension Influenza [id number] Immunization 06/20/24 Z23 - Encounter for immunization Comprehensive [place]. Panel Fast 06/20/24 E11.65 - Type 2 diabetes mellitus with hyperglycemia, I10 - Essential (primary) hypertension Lipid Panel 06/20/24 E11.65 - Type 2 diabetes mellitus with hyperglycemia, I10 - Essential (primary) hypertension Medications: New tirzepatide (Mounjaro) for 4 weeks 2.5 mg (0.5 mL) subcut QWEEK 2 mL 3RF 30 days Changed From lisinopril 10 mg PO DAILY 90 tabs 1RF To lisinopril 20 mg PO DAILY 90 tabs 1RF
== END 2024-06-20 15:26 | disposition home or self-care (01) ==
LOC: HO.HMCC 13:34
PROVIDERS: PCP Internal Medicine; Visit Provider Internal Medicine
DX: E11.65 Type 2 diabetes mellitus with hyperglycemia (principal); I10 Essential (primary) hypertension; E78.5 Hyperlipidemia, unspecified

== ENCOUNTER → 2024-06-20 13:33 | Outpatient (BNVA) | payer OTHER, SELFPAY | PROVIDERS: PCP Internal Medicine; Visit Provider Internal Medicine | DX: E11.65 Type 2 diabetes mellitus with hyperglycemia (principal); I10 Essential (primary) hypertension; E78.5 Hyperlipidemia, unspecified; Z79.84 Long term (current) use of oral hypoglycemic drugs; Z79.899 Other long term (current) drug therapy; Z23 Encounter for immunization | CPT/HCPCS: 83036; 90471; 90656 ==

== ENCOUNTER 2024-10-17 06:06 | Outpatient (REF) | payer OTHER, SELFPAY ==
--- OUTSIDE RECORDS SUMMARY | 2024-10-17 06:08 | XMS_ITS | Clinical Summary ---
Author Organization [employer] Address [address] [place] [address] Care Team Providers Care Brand Planner Name Role Phone Sandy Orosco Primary Care Provider [phone] Active Problems Problem Noted Date Diagnosed Date Left hip pain 12/26/2022 Social History Tobacco Use Types Packs/Day Years Used Date Smoking Tobacco: Never Assessed Sex and Gender Information Value Date Recorded Sex Assigned at Not on file Legal Sex Male 10:34 AM [facility] Gender Identity Not on file Sexual Orientation Not on file Plan of Treatment Health Maintenance Due Date Last Done Comments CT Colonography 1965 Cologuard 1965 Colonoscopy 1965 Colorectal Cancer Screening 1965 FOBT/FIT 1965 Hepatitis C Screening 1965 Sigmoidoscopy 1965 PHQ-9 Depression Screen 1975 Annual Preventive Exam 10/30/1981 AISHA-7 Anxiety Screen 10/30/1981 DTaP,Tdap,and Td Vaccines (1 - Tdap) 10/30/1982 Pneumococcal Vaccine: 50+ Years (1 of 2 - PCV) 983 Zoster Vaccines (1 of 2) 10/30/2013 RSV Vaccine (SCDM) (1 - Risk 60-74 years 1-dose series ) 2023 COVID-19 Vaccine (1 - 2023-25 season) 2024 Influenza Vaccine (#1) 2024 Insurance [employer] Care Teams Brand Planner Relationship Specialty Start Date End Date Sandy Orosco PCP - General 01/25/21
[2024-10-17 11:15] LABS: Estimated Average Glucose 146 mg/dL; Hemoglobin A1c % 6.7 % (<6.0)
[2024-10-17 11:28] LABS: Alanine Aminotransferase 57 U/L (0-40); Albumin Level 4.2 g/dL (3.5-5.0); Alkaline Phosphatase 81 U/L (39-117); Anion Gap 17 (12-20); Aspartate Amino Transferase 48 U/L (5-37); Bilirubin Total 0.7 mg/dL (0.0-1.0); Blood Urea Nitrogen 12 mg/dL (9-16); Calcium 9.1 mg/dL (8.4-10.2); Carbon Dioxide 26 mmol/L (22-29); Chloride 104 mmol/L (96-108); Cholesterol 116 mg/dL (<200); Estimated Glomerular Filt Rate > 60; Glucose Fasting 102 mg/dL (60-99); HDL Cholesterol 45 mg/dL (>40); LDL Cholesterol Calculated 59 mg/dL (<100); Potassium 4.7 mmol/L (3.3-5.1); Sodium 142 mmol/L (135-145); Total Protein 7.6 g/dL (6.5-8.0); Triglycerides 61 mg/dL (<150)
[2024-10-17 12:08] LABS: Creatinine Urine 128.97 mg/dL; Microalbum/Creatinine Ratio Ur 20.9 ug/mg cr (<30)
== END 2024-10-17 06:07 | disposition home or self-care (01) ==
LOC: HO.HMGCLDS 06:06
PROVIDERS: PCP Internal Medicine; Visit Provider Internal Medicine
DX: E11.65 Type 2 diabetes mellitus with hyperglycemia (principal); I10 Essential (primary) hypertension
CPT/HCPCS: 36415; 80053; 80061; 82043; 82570; 83036

== ENCOUNTER 2024-11-18 13:22 | Outpatient (AMB) | payer OTHER, SELFPAY ==
[2024-11-18 13:32] VITALS: BP 130/84; PULSE 83; RESP 15; O2SAT 98; BMI 37.2
--- NOTE | 2024-11-18 13:32 | MHC.PC.OV ---
Vital Signs 11/18/24 13:32 Height 5 ft 4 in Weight 217 lb BMI 37.2 BP 130/84 Blood Pressure Location Rt brachial Position Sitting Respiration 15 Pulse 83 Pulse Source Pulse Oximeter Pulse Oximetry (%) 98 Oxygen Delivery Method Room Air Intake Visit Reasons: 4m follow up Intake Note: Pt is here today for his 4mo. f/u Allergies Codeine Adverse Reaction (Unknown, Uncoded 11/18/24 13:52) nausea and vomiting Medication List - Last Reconciled 11/18/24 by Sandy Orosco MD aspirin (Adult Low Dose Aspirin) 81 mg PO DAILY blood sugar diagnostic (OneTouch Verio test strips) Check blood sugar as directed twice daily before meals blood sugar diagnostic (OneTouch Verio test strips) Check fasting glucose twice a day before meals empagliflozin (Jardiance) 25 mg PO QAM lancets (OneTouch Delica Plus Lancet) test blood sugar twice a day lisinopril 20 mg PO DAILY metformin 1,000 mg PO BID 90 days pravastatin 10 mg PO BEDTIME tirzepatide (Mounjaro) 2.5 mg (0.5 mL) subcut QWEEK 30 days Tobacco use date assessed: 11/18/24 Dental Screening Dental Screen Date: 11/18/24 Did you have a dental visit in the last 12 months?: Yes Did you have a dental problem in the last 6 months where you did not have access to dental care?: No Was dental information given to patient?: Patient has dentist HPI 4m follow up HPI Details 59-year-old male with history of diabetes mellitus, dyslipidemia, obesity and hypertension here today for his follow-up. He has been compliant with adhering to healthy eating habits, cutting back on fast food processed foods and sugary sweets snacks. He also has started exercising regularly and has lost a noticeable amount of weight since last visit. Blood pressure also has been normal, and latest fasting labs showed marked improvement in his diabetes control now with a hemoglobin A1c of 6.7%, with normal electrolytes, renal function and fasting lipid panel. [facility] Medical History Essential hypertension Osteoarthritis, hip, bilateral Morbid obesity Essential hypertension Dyslipidemia Surgical History S/P total left hip arthroplasty Hx of umbilical hernia repair Family History Father No problems noted. Brother No problems noted. Mother No problems noted. Social History Housing: House Alcohol intake: never Patient Tobacco Use Status: Never used Tobacco e-Cigarette/Vaping Use: Never Used Second Hand Smoke Exposure: No service: No Current occupational status: employed Cognitive needs: No Hearing needs: No Vision needs: Yes Questionnaire PHQ-9 Over the last 2 weeks, how often have you been bothered by any of the following problems? 1. Little interest or pleasure in doing things: not at all 2. Feeling down, depressed, or hopeless: not at all 3. Trouble falling or staying asleep, or sleeping too much: not at all 4. Feeling tired or having little energy: not at all 5. Poor appetite or overeating: not at all 6. Feeling bad about yourself - or that you are a failure or have let yourself or your family down: not at all 7. Trouble concentrating on things, such as reading the newspaper or watching television: not at all 8. Moving or speaking so slowly that other people could have noticed. Or the opposite - being so fidgety or restless that you have been moving around a lot more than usual: not at all 9. Thoughts that you would be better off or of hurting yourself in some way: not at all Total score: 0 Depression Screening Interpretation: Negative Depression Screening Done: Yes 59552 - PHQ-9 Billing: Yes Source: Developed by Drs. Real Page, Roxie Victor, Zbigniew Ceja and colleagues, with an educational victorino from [employer]. Thrive Questionnaire Date Thrive assessed: 11/11/24 I am a: Patient What is your living situation today?: I have a steady place to live Within the past 12 months, did the food you bought not last and you didn't have the money to get more?: Never true Within the past 12 months, did you worry whether your food would run out before you got money to buy more?: Never true Do you have trouble paying for medicines?: No Do you have trouble getting transportation to medical appointments?: No Do you have trouble paying your heating and electricity bill?: No Do you have trouble taking care of your child, family member or friend?: No Do you have trouble with day-to-day activities such as bathing, preparing meals, shopping, managing finances, etc.?: No Are you currently unemployed and looking for a job?: No Are you interested in more education?: No THRIVE Score: 0 AUDIT C Alcohol Use Questionnaire (AUDIT-C) 1. How often do you have a drink containing alcohol?: Monthly or less 2. How many drinks containing alcohol do you have on a typical day when you are drinking?: 1 or 2 3. How often do you have six or more drinks on one occasion?: Never Total Score: 1 AISHA-7 AMB Questionnaire AISHA-7 Date AISHA - 7 assessed: 11/18/24 Feeling nervous, anxious, or on edge: 0 = Not at all Not being able to stop or control worryin = Not at all Worrying too much about different things: 0 = Not at all Trouble relaxin = Not at all Being so restless that it is hard to sit still: 0 = Not at all Becoming easily annoyed or irritable: 0 = Not at all Feeling afraid as if something awful might happen: 0 = Not at all Total AISHA-7 score (0-4 normal; 5-9 mild; 10-14 moderate; 15-21 severe): 0 Source: Developed by Drs. Real Page, Roxie Victor, Zbigniew eCja and colleagues, with an educational victorino from [employer]. AISHA-7 Assessment Billing AISHA-7 Assessment Tool: AISHA-7 Assessment 95217 Review of Systems Const Denies malaise Eyes Details: goes to [employer] Denies change in vision Card Denies chest pain, Denies chest pain with activity, Denies irregular heart rhythm, Denies lightheadedness, Denies palpitations, Denies dyspnea and Denies dyspnea on exertion Resp Denies cough, Denies pain on inspiration, Denies dyspnea, Denies dyspnea on exertion and Denies wheezing GI Denies abdominal pain, Denies melena, Denies change in bowel habits, Denies heartburn and Denies nausea Reports no additional complaints Musc Denies arthralgias, Denies joint swelling and Denies limited range of motion Skin/Breast Denies lesions and Denies rash Neuro Reports no additional complaints Psych Reports no additional complaints Endo Denies cold intolerance, Denies polyphagia, Denies polydipsia, Denies polyuria and Denies palpitations Jey/Lymph Denies easy bleeding and Denies easy bruising Aller/Immun Denies seasonal rhinorrhea and Denies wheezing Physical exam (Primary Care) Vital Signs: Last Vital Signs Pulse 83 11/18/24 13:32 Resp 15 11/18/24 13:32 BP 130/84 11/18/24 13:32 Pulse Ox 98 11/18/24 13:32 Oxygen Delivery Method Room Air 11/18/24 13:32 BMI result Body Mass Index 37.2 BMI Assessment/Plan discussion: High BMI High, discussed plan: lifestyle, weight reduction, dietary and physical activity Tobacco/Smoking Status: Tobacco use Status Tobacco use date assessed 11/18/24 11/18/24 13:40 Patient Tobacco Use Status Never used Tobacco 11/18/24 13:33 e-Cigarette/Vaping Use Never Used 11/18/24 13:33 PHQ-9: PHQ-9 Score PHQ-9: Total score 0 11/18/24 13:54 Depression Screening Interpretation: Negative Thrive Assessment: Date of Thrive Assessment Date Thrive assessed 11/11/24 11/18/24 13:33 Const General: comfortable and alert Nutritional Appearance: obese morbidly obese Eyes Other: [place] palpebral conjunctiva, anicteric, extraocular muscles full and intact Neck Neck: Yes full ROM, Yes no lymphadenopathy and Yes supple Thyroid: Thyroid normal Resp Effort & Inspection: normal respiratory effort and able to speak in complete sentences Auscultation: clear to auscultation bilaterally Cardio Rate: regular rate Rhythm: regular rhythm Heart sounds: S1 normal heart sound present and S2 normal heart sound present GI Inspection: Yes obesity Palpation (GI): Soft to palpation, nontender and no guarding Auscultation: normal bowel sounds General: Yes CVA tenderness Male General Exam: Yes normal external exam Back/Spine/Pelvis Back: CVA tenderness and No back tenderness Skin General skin exam: no rashes or lesions noted Neuro Other: alert oriented x3, no acute cardiorespiratory distress ambulatory with normal gait General: normal sensation to monofilament Extrem General: Yes full ROM, Yes no joint enlargement and Yes normal gait Results Reviewed Results Reviewed: Laboratory Tests 10/17/24 06:19 Estimat Average Glucose 146 Hemoglobin A1c % 6.7 H Urine Creatinine 128.97 Urine Microalbumin 27.0 Microalb/Creat Ratio 20.9 kevin: Aron Mar Age/Sex: 58/M : 1965 Unit#: [id number] Attend Dr: Sandy Orosco MD Re10/17/24 Status: [facility]P [facility]: SPEC : [id number] JAVIER: 10/17/24 STATUS: COMP REQ : [id number] RECD: 10/17/[address]: Sandy Orosco MD COMP: 10/17/24 ENTERED: 10/17/[address]: ORDERED: CMP Fast, Lipid Panel Test Result Flag Reference Sodium 142 135-145 mmol/L Potassium 4.7 # 3.3-5.1 mmol/L CL 104 96-108 mmol/L CO2 26 22-29 mmol/L Gap 17 12-20 BUN 12 9-16 mg/dL Creat 0.84 0.5-1.4 mg/dL eGFR > 60 Chronic Kidney Disease: Estimated GFR < 60 mL/min/1.73m2 Severe Kidney Disease: Estimated GFR < 15 mL/min/1.73m2 FBS 102 H 60-99 mg/dL A fasting glucose from 100-125 mg/dl is considered impaired (pre-diabetes). CA 9.1 8.4-10.2 mg/dL Total Bili 0.7 0.0-1.0 mg/dL AST (GOT) 48 H 5-37 U/L ALT (GPT) 57 H 0-40 U/L Protein, Total 7.6 6.5-8.0 g/dL Alb 4.2 3.5-5.0 g/dL Triglyceride 61 <150 mg/dL Desirable Triglyceride: less than 150 mg/dL Borderline High Triglyceride 150-199 mg/dL High Triglyceride: 200-499 mg/dL Very High Triglyceride: greater than or equal to 5OO mg/dL Cholesterol 116 <200 mg/dL Desirable Cholesterol: less than 200 mg/dL Borderline High Cholesterol: 200-239 mg/dL High Cholesterol: greater than 239 mg/dL LDL Calculated 59 <100 mg/dL Desirable LDL: less than 100 mg/dL Near Optimal/Above Optimal LDL: 110-129 mg/dL Borderline High LDL: 130-159 mg/dL High LDL: 160-189 mg/dL Very High LDL: greater than or equal to 190 mg/dL HDL 45 >40 mg/dL Desirable HDL: greater than 40 mg/dL Note: This HDL assay may give artificially low results in patients with liver disease. Alk Phos 81 39-117 U/L Coding Level of Care Code Est Pt Level 4 (00980) Complex EM visit Add On G2211 Diagnoses Dyslipidemia E78.5 Essential hypertension I10 Morbid obesity E66.01 Additional Codes PHQ-9 - 14879 - PHQ-9 Billing: Yes ([id number]) AISHA-7 Assessment Billing - AISHA-7 Assessment Tool: AISHA-7 Assessment 53313 ([id number]) Assessment & Plan Assessment & Plan (1) Dyslipidemia: Code(s): E78.5 - Hyperlipidemia, unspecified Category: Medical Plan: Reviewed recent fasting lipid profile with patient with levels within normal limits . Continue pravastatin 10 mg at bedtime , in addition to adherence to low-cholesterol diet and regular exercise, at least 30 minutes 3 to 4 times a week. Advised patient to make healthy food choices, eat more fruits, vegetables, whole grains, wild caught fish and low-fat dairy. Limit amount of meat and fried or fatty food products, as well as processed foods and fast foods. Follow-up scheduled with repeat fasting lipid panel in 3.months. (2) Essential hypertension: Code(s): I10 - Essential (primary) hypertension Category: Medical Plan: Blood pressure stable and controlled, continued on lisinopril 20 mg daily (3) Morbid obesity: Code(s): E66.01 - Morbid (severe) obesity due to excess calories Category: Medical Plan: Continued on Mounjaro 2.5 mg injected subcutaneously once a week. Tolerating medication well Orders: Orders Basic Metabolic Panel Fasting 3 Months E66.01 - Morbid (severe) obesity due to excess calories, E78.5 - Hyperlipidemia, unspecified, I10 - Essential (primary) hypertension Hemoglobin A1c 3 Months E66.01 - Morbid (severe) obesity due to excess calories, E78.5 - Hyperlipidemia, unspecified, I10 - Essential (primary) hypertension Alanine Aminotransferase 3 Months E66.01 - Morbid (severe) obesity due to excess calories, E78.5 - Hyperlipidemia, unspecified, I10 - Essential (primary) hypertension Aspartate Amino Transferase 3 Months E66.01 - Morbid (severe) obesity due to excess calories, E78.5 - Hyperlipidemia, unspecified, I10 - Essential (primary) hypertension Lipid Panel 3 Months E66.01 - Morbid (severe) obesity due to excess calories, E78.5 - Hyperlipidemia, unspecified, I10 - Essential (primary) hypertension
--- OUTSIDE RECORDS SUMMARY | 2024-11-18 15:53 | XMS_ITS | Clinical Summary ---
Author Organization [employer] Address [address] [place] [address] Care Team Providers Care Clinical Psychologist Name Role Phone Sandy Orosco Primary Care Provider [phone] Active Problems Problem Noted Date Diagnosed Date Left hip pain 12/26/2022 Social History Tobacco Use Types Packs/Day Years Used Date Smoking Tobacco: Never Assessed Sex and Gender Information Value Date Recorded Sex Assigned at Not on file Legal Sex Male 10:34 AM [facility] Gender Identity Not on file Sexual Orientation [...] series ) 2023 COVID-19 Vaccine (1 - 2023- season) 2024 Influenza Vaccine (Season Ended) 2025 Insurance [employer] Care Teams Clinical Psychologist Relationship Specialty Start Date End Date Sandy Orosco PCP - General 01/25/21
== END 2024-11-18 14:21 | disposition home or self-care (01) ==
LOC: HO.HMCC 13:22
PROVIDERS: PCP Internal Medicine; Visit Provider Internal Medicine
DX: E78.5 Hyperlipidemia, unspecified (principal); I10 Essential (primary) hypertension; E66.01 Morbid (severe) obesity due to excess calories; Z68.37 Body mass index [BMI] 37.0-37.9, adult

== ENCOUNTER → 2024-11-18 13:22 | Outpatient (BNVA) | payer OTHER, SELFPAY | PROVIDERS: PCP Internal Medicine; Visit Provider Internal Medicine | DX: E78.5 Hyperlipidemia, unspecified (principal); I10 Essential (primary) hypertension; E66.01 Morbid (severe) obesity due to excess calories; E11.9 Type 2 diabetes mellitus without complications; Z68.37 Body mass index [BMI] 37.0-37.9, adult; Z79.899 Other long term (current) drug therapy | CPT/HCPCS: 96127 ==

== ENCOUNTER 2025-01-16 16:48 | Emergency (ER) | payer OTHER, SELFPAY ==
--- NOTE | ~2025-01-16 | CT_ITS ---
CLINICAL HISTORY: fall +HS CT cervical spine without contrast Comparison: None Findings: Normal vertebral body alignment. There is mild degenerative change. No acute fractures or dislocations. Visualized intracranial contents are unremarkable. No cervical fluid collections or masses. There are multiple bilateral prominent cervical lymph nodes. No consolidation or effusion at the lung apices. IMPRESSION: No acute findings. This document has been electronically signed by: Ayden Ferreira MD on 01/16/2025 18:14:26
--- NOTE | ~2025-01-16 | CT_ITS ---
CLINICAL HISTORY: +head inj, memory loss +LOC CT head without contrast Comparison: None Findings: No intra-axial mass, midline shift, hydrocephalus, or acute hemorrhage. No significant atrophy-like change or white matter disease. Mucosal thickening of the bilateral maxillary sinus. The orbits are within normal limits. There is no acute fracture. Soft tissue hematoma of the right parietal scalp. IMPRESSION: 1. No acute intracranial findings. This document has been electronically signed by: Ayden Ferreira MD on 01/16/2025 18:16:49
--- NOTE | 2025-01-16 16:55 | ED_ITS ---
HPI - Fall General Chief Complaint: Head Injury Stated Complaint: head injury fall Time Seen by Provider: 01/16/25 20:58 Source: patient Limitations: no limitations History of Present Illness ED Provider: Isa Estes PA-C HPI Narrative: 59-year-old male presents after fall. Patient states he was helping to move a large heater, it was very heavy. the person helping him, tip the heat her toward him, the full weight of the heat or landed on him, he subsequently fell backwards striking his head, then that he had her secondarily fell onto his feet. Patient did lose consciousness, he is not on a blood thinner. Associated headache, denies dizziness, nausea, vomiting. Patient has been ambulatory since the incident, associated pain and swelling of bilateral feet, left greater than right. Related Data Home Medications ?Medication ?Instructions ?Recorded ?Confirmed aspirin 81 mg tablet,delayed 81 mg PO DAILY 01/28/21 07/21/22 release (Adult Low Dose Aspirin) Previous Rx's ?Medication ?Instructions ?Recorded blood sugar diagnostic (OneTouch #200 ea 06/13/23 Verio test strips) pravastatin 10 mg tablet 10 mg PO BEDTIME #45 tabs 12/19/23 empagliflozin 25 mg tablet 25 mg PO QAM #90 tabs 04/01/24 (Jardiance) blood sugar diagnostic (OneTouch #200 ea 07/26/24 Verio test strips) lancets 33 gauge (OneTouch Delica #200 ea 07/26/24 Plus Lancet) metformin 1,000 mg tablet 1,000 mg PO BID 90 days #180 tabs 09/12/24 tirzepatide 2.5 mg/0.5 mL 2.5 mg (0.5 mL) subcut QWEEK 30 10/10/24 subcutaneous pen injector days #2 mL (Mounjaro) lisinopril 20 mg tablet 20 mg PO DAILY #90 tabs 12/02/24 methocarbamol 750 mg tablet 1,500 mg (2 x 750 mg) PO Q8H PRN 01/16/25 pain, moderate #20 tabs Allergies Allergy/AdvReac Type Severity Reaction Status Date / Time Codeine AdvReac Unknown nausea and Uncoded 01/16/25 16:57 vomiting Review of Systems 2 Review of Systems: Yes all other systems are reviewed and are negative Constitutional: Constitutional: Denies fatigue, Denies fever(s) and Reports headache(s) ENT: Denies dizziness, Reports headache(s) and Denies neck pain Cardiovascular: Cardiovascular: Denies chest pain Gastrointestinal: Gastrointestinal: Denies nausea and Denies vomiting Musculoskeletal: Musculoskeletal: Reports arthralgias, Reports joint swelling and Denies neck pain Neurologic: Denies dizziness and Reports headache(s) Endocrine: Endocrine: Denies fatigue PMFSH Past Medical History Attestation statement: The following information was validated with the patient. Medical History Essential hypertension Osteoarthritis, hip, bilateral Morbid obesity Essential hypertension Dyslipidemia Surgical History (Reviewed 11/25/24 @ 02: by Sandy Orosco MD) S/P total left hip arthroplasty Hx of umbilical hernia repair Family History Family History (Reviewed 11/25/24 @ 02: by Sandy Orosco MD) Father No problems noted. Brother No problems noted. Mother No problems noted. Social History Social History Housing: House Alcohol intake: never Patient Tobacco Use Status: Never used Tobacco Smoked in Last 30 Days: No e-Cigarette/Vaping Use: Never Used Second Hand Smoke Exposure: No Use of substances other than those prescribed or required for medical reasons: No Advance Directives: No Advance Directives Information Provided: Yes service: No Current occupational status: employed Cognitive needs: No Hearing needs: No Vision needs: Yes Physical Exam 2 Vital Signs: Vital Signs: Last Vital Signs Temp 98.2 F 01/16/25 16:56 Pulse 92 01/16/25 20:13 Resp 18 01/16/25 20:13 BP 145/101 H 01/16/25 20:13 Pulse Ox 98 01/16/25 20:13 O2 Del Method Room Air 01/16/25 20:13 BMI result Body Mass Index 37.2 Const: Other: Alert, well-appearing, contusion noted posterior scalp Orientation/consciousness: patient oriented x3 Neck: Other: full range of motion Resp: Effort & Inspection: normal respiratory effort Cardio: Other: normal peripheral perfusion Skin: Other: warm dry no rash Neuro: General: patient oriented x3, gait normal, no focal motor deficits and CN's II-XI intact bilaterally Extrem: Other: ecchymosis noted over medial right foot, patient has full flexion and extension of the ankle. Brewing ecchymosis and subtle swelling over the dorsum of the left foot, full flexion and extension of the left ankle Psych: Other: calm cooperative Course Course Course Narrative: This is a Rapid Medical Exam performed in triage by Rosa Maria Rabago PA-C. Full HPI, ROS and PE to be performed by primary ED provider. 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 States heater on ismael fell onto patient causing him to fall backwards. +LOC & memory loss briefly after incident. Also reports nausea. Takes 81 ASA daily. PE: +hematoma to R posterior scalp. nonfocal, ambulating w/steady gait. Plan: Head/C-spine CT Medical Decision Making Medical Decision Making MDM Narrative: 59-year-old male presents after fall. Patient states he was helping to move a large heater, it was very heavy. the person helping him, tip the heat her toward him, the full weight of the heat or landed on him, he subsequently fell backwards striking his head, then that he had her secondarily fell onto his feet. Patient did lose consciousness, he is not on a blood thinner. Associated headache, denies dizziness, nausea, vomiting. Patient has been ambulatory since the incident, associated pain and swelling of bilateral feet, left greater than right. no chronic issues History: Per patient I have considered the following differential diagnoses: Intracranial hemorrhage, cervical spine injury, fracture, dislocation, sprain, contusion, concussion Plan: Imaging of the head and cervical spine ordered from triage there was no acute injury. The patient's notes he had short-term amnesia following the fall, he could have concussion. We will send with home care instructions. In regard to his bilateral foot pain, he is ambulatory, without deformity, he has full range of motion, unlikely for fracture or dislocation, x-rays not warranted. I have independently reviewed the following tests: Labs: Slight leukocytosis, not anemic, no electrolyte abnormality noted CT brain: Findings: No intra-axial mass, midline shift, hydrocephalus, or acute hemorrhage. No significant atrophy-like change or white matter disease. Mucosal thickening of the bilateral maxillary sinus. The orbits are within normal limits. There is no acute fracture. Soft tissue hematoma of the right parietal scalp. IMPRESSION: 1. No acute intracranial findings. CT cervical spine:Findings: Normal vertebral body alignment. There is mild degenerative change. No acute fractures or dislocations. Visualized intracranial contents are unremarkable. No cervical fluid collections or masses. There are multiple bilateral prominent cervical lymph nodes. No consolidation or effusion at the lung apices. IMPRESSION: No acute findings. Lab Data 01/16/25 18:39 01/16/25 18:39 Labs: Lab Results 01/16/25 Range/Units 18:39 WBC 13.9 H (4.8-10.8) X10*3/uL RBC 5.49 (4.60-5.80) X10*6/uL Hgb 15.1 (14.0-18.0) g/dl Hct 45.7 (42.0-52.0) % MCV 83.2 (80.0-98.0) fL MCH 27.5 (27.0-33.0) pg MCHC 33.0 (31.0-36.0) g/dl RDW 14.3 (11.0-16.0) % Plt Count 338 (160-400) X10*3/uL MPV 8.4 L (9.4-12.4) fL Immature Gran % (Auto) 0.4 (0.0-0.4) % Neut % (Auto) 74.1 H (45-73) % Lymph % (Auto) 17.3 L (20-40) % Carbon % (Auto) 7.0 (2-11) % Eos % (Auto) 0.8 (0-4) % Baso % (Auto) 0.4 (0-2) % Lymph # (Auto) 2.4 (1.2-4.9) X10*3/uL Carbon # (Auto) 1.0 (0.1-1.2) X10*3/uL Eos # (Auto) 0.1 (0.0-0.4) X10*3/uL Baso # (Auto) 0.1 (0.0-0.2) X10*3/uL Abs Immat Gran (auto) 0.05 H (0.00-0.03) X10*3/uL Absolute Neuts (auto) 10.3 H (2.0-8.3) x10*3/uL Absolute Nucleated RBC 0.000 (0.0-0.012) X10*3/uL Nucleated RBC % (auto) 0.0 (0.0-0.2) /100WBC Sodium 144 (135-145) mmol/L Potassium 4.3 (3.3-5.1) mmol/L Chloride 107 (96-108) mmol/L Carbon Dioxide 27 (22-29) mmol/L Anion Gap 13 (12-20) BUN 15 (9-16) mg/dL Creatinine 0.96 (0.5-1.4) mg/dL Estim Creat Clear Calc 82.5 Estimated GFR > 60 Random Glucose 124 H (60-115) mg/dL Calcium 9.7 D (8.4-10.2) mg/dL Magnesium 2.0 (1.6-2.6) mg/dL Total Bilirubin 0.4 (0.0-1.0) mg/dL Direct Bilirubin 0.2 (0.0-0.5) mg/dL AST 31 (5-37) U/L ALT 47 H (0-40) U/L Alkaline Phosphatase 96 (39-117) U/L Total Creatine Kinase 107 (38-174) U/L Total Protein 7.7 (6.5-8.0) g/dL Albumin 4.6 (3.5-5.0) g/dL Discharge Plan Discharge Clinical Impression: Concussion, Contusion Patient Disposition: Home, Self-Care Instructions: Concussion (ED), P.R.I.C.E. Treatment (ED), Bone Bruise (ED) Additional Instructions: the CT scan of the brain and cervical spine were negative for acute injury. You likely have a concussion based on your symptoms. See home care instructions. You can alternate between the use of ibuprofen 600 mg taken every 6 hours with food, Tylenol 1000 mg taken every 8 hours, methocarbamol taken every 8 hours, as needed for headache and body pain. Follow up with your primary care provider as needed. Prescriptions: New methocarbamol 750 mg tablet 1,500 mg PO Q8H PRN (Reason: pain, moderate) Qty: 20 0RF No Action (DME) OneTouch Verio test strips Strip See Rx Instructions .ROUTE .MEDSUPPLY Qty: 200 3RF Rx Instructions: Check blood sugar as directed twice daily before meals pravastatin 10 mg tablet 10 mg PO BEDTIME Qty: 45 3RF Rx Instructions: 1 tablet every other day Jardiance 25 mg tablet 25 mg PO QAM Qty: 90 3RF (DME) lancets [OneTouch Delica Plus Lancet] 33 gauge misc See Rx Instructions .Route Qty: 200 3RF Rx Instructions: test blood sugar twice a day (DME) OneTouch Verio test strips Strip See Rx Instructions .Route Qty: 200 6RF Rx Instructions: Check fasting glucose twice a day before meals metformin 1,000 mg tablet 1,000 mg PO BID 90 Days Qty: 180 3RF Mounjaro 2.5 mg/0.5 mL pen injector 2.5 mg subcut QWEEK 30 Days Qty: 2 3RF Rx Instructions: for 4 weeks lisinopril 20 mg tablet 20 mg PO DAILY Qty: 90 3RF aspirin [Adult Low Dose Aspirin] 81 mg tablet,delayed release (DR/EC) 81 mg PO DAILY Stand Alone Forms: Work/School Release Print Language: Pashto
[2025-01-16 16:56] VITALS: BP 140/106; PULSE 101; RESP 18; TEMP 36.8; O2SAT 96; BMI 37.2
[2025-01-16 18:43] LABS: MANUAL DIFF FLAG NO
[2025-01-16 19:04] LABS: Alanine Aminotransferase 47 U/L (0-40); Albumin Level 4.6 g/dL (3.5-5.0); Alkaline Phosphatase 96 U/L (39-117); Aspartate Amino Transferase 31 U/L (5-37); Bilirubin Direct 0.2 mg/dL (0.0-0.5); Bilirubin Total 0.4 mg/dL (0.0-1.0); Blood Urea Nitrogen 15 mg/dL (9-16); Calcium 9.7 mg/dL (8.4-10.2); Carbon Dioxide 27 mmol/L (22-29); Chloride 107 mmol/L (96-108); Creatinine Clr Calc Pharmacy 82.5; Estimated Glomerular Filt Rate > 60; Glucose Random 124 mg/dL (60-115); Potassium 4.3 mmol/L (3.3-5.1); Sodium 144 mmol/L (135-145); Total Protein 7.7 g/dL (6.5-8.0)
[2025-01-16 19:06] LABS: Anion Gap 13 (12-20)
[2025-01-16 19:08] LABS: Basophils Absolute Auto 0.1 X10*3/uL (0.0-0.2); Basophils Percent Auto 0.4 % (0-2); Eosinophils Absolute Auto 0.1 X10*3/uL (0.0-0.4); Eosinophils Percent Auto 0.8 % (0-4); Hematocrit 45.7 % (42.0-52.0); Hemoglobin 15.1 g/dl (14.0-18.0); Imm Gran Abs Auto 0.05 X10*3/uL (0.00-0.03); Imm Gran Pct Auto 0.4 % (0.0-0.4); Lymphocytes Absolute Auto 2.4 X10*3/uL (1.2-4.9); Lymphocytes Percent Auto 17.3 % (20-40); Mean Corpuscular Hemoglobin 27.5 pg (27.0-33.0); Mean Corpuscular Volume 83.2 fL (80.0-98.0); Mean Platelet Volume 8.4 fL (9.4-12.4); Neutrophils Absolute Auto 10.3 x10*3/uL (2.0-8.3); Neutrophils Percent Auto 74.1 % (45-73); Platelet Count 338 X10*3/uL (160-400); Red Blood Count 5.49 X10*6/uL (4.60-5.80); Red Cell Distribution Width 14.3 % (11.0-16.0); White Blood Count 13.9 X10*3/uL (4.8-10.8)
[2025-01-16 20:13] VITALS: BP 145/101; PULSE 92; RESP 18; O2SAT 98
[2025-01-16] MEDS: Ibuprofen 600 MG TABLET PO (22:13)
[2025-01-16] MEDS: methocarbamoL 750 MG TABLET 1500 MG PO (22:14)
[2025-01-16] MEDS: Acetaminophen 325 MG TABLET 975 MG PO (22:14)
[2025-01-16 22:20] VITALS: BP 127/98; PULSE 92; RESP 18; TEMP 36.7; O2SAT 96
[2025-01-16 22:40] VITALS: BP 127/98; PULSE 92; RESP 18; TEMP 36.7; O2SAT 96
== END 2025-01-16 22:40 | disposition home or self-care (01) ==
PROVIDERS: Physician Assistant; Emergency Provider Emergency Medicine; PCP Internal Medicine
DX: S06.0X0A Concussion without loss of consciousness, initial encounter (principal); S00.93XA Contusion of unspecified part of head, initial encounter; R51.9 Headache, unspecified; M54.2 Cervicalgia; Y29.XXXA Contact with blunt object, undetermined intent, initial encounter; Y93.9 Activity, unspecified; Y92.9 Unspecified place or not applicable; Y99.8 Other external cause status; Z79.899 Other long term (current) drug therapy
CPT/HCPCS: 36415; 70450; 72125; 80048; 80076; 82550; 83735; 85025; 99284

== ENCOUNTER → 2025-01-16 16:59 | Outpatient (BNV) | payer OTHER, SELFPAY | PROVIDERS: Visit Provider Nuclear Medicine | DX: S09.90XA Unspecified injury of head, initial encounter (principal); R41.3 Other amnesia; W19.XXXA Unspecified fall, initial encounter | CPT/HCPCS: 70450; 72125 ==

== ENCOUNTER 2025-02-18 06:02 | Outpatient (REF) | payer OTHER, SELFPAY ==
--- OUTSIDE RECORDS SUMMARY | 2025-02-18 06:04 | XMS_ITS | Clinical Summary ---
Author Organization [facility] Address [address] [place] [address] Care Team Providers Care Supervisor Asbestos Removal Name Role Phone Sallyandreina Sandy Primary Care Provider [phone] Active Problems Problem Noted Date Diagnosed Date Left hip pain 12/26/2022 Social History Tobacco Use Types Packs/Day Years Used Date Smoking Tobacco: Never Assessed Sex and Gender Information Value Date Recorded Sex Assigned at Not on file Legal Sex Male 10:34 AM [facility] Gender Identity Not on file Sexual [...] (1 - 2023- season) 2024 Influenza Vaccine (#1) 2025 Insurance [employer] Care Teams Supervisor Asbestos Removal Relationship Specialty Start Date End Date Sandy Orosco PCP - General 01/25/21
[2025-02-18 11:29] LABS: Alanine Aminotransferase 31 U/L (0-40); Anion Gap 12 (12-20); Aspartate Amino Transferase 28 U/L (5-37); Blood Urea Nitrogen 20 mg/dL (9-16); Calcium 9.0 mg/dL (8.4-10.2); Carbon Dioxide 26 mmol/L (22-29); Chloride 106 mmol/L (96-108); Cholesterol 148 mg/dL (<200); Estimated Glomerular Filt Rate > 60; HDL Cholesterol 54 mg/dL (>40); Potassium 5.0 mmol/L (3.3-5.1); Sodium 139 mmol/L (135-145); Triglycerides 67 mg/dL (<150)
[2025-02-18 11:43] LABS: Hemoglobin A1C 178.9352 umol/L; Total Hemoglobin (HGBA1C) 3844.5706 umol/L
== END 2025-02-18 06:03 | disposition home or self-care (01) ==
LOC: HO.HMGCLDS 06:02
PROVIDERS: PCP Internal Medicine; Visit Provider Internal Medicine
DX: I10 Essential (primary) hypertension (principal); E66.01 Morbid (severe) obesity due to excess calories; E78.5 Hyperlipidemia, unspecified
CPT/HCPCS: 36415; 80048; 80061; 83036; 84450; 84460

== ENCOUNTER 2025-02-20 13:39 | Outpatient (AMB) | payer OTHER, SELFPAY ==
--- OUTSIDE RECORDS SUMMARY | 2025-02-20 13:42 | XMS_ITS | Clinical Summary ---
Author Organization [facility] Address [address] [place] [address] Care Team Providers Care Chick Sexer Name Role Phone Sallyandreina Sandy Primary Care Provider [phone] Active Problems Problem Noted Date Diagnosed Date Left hip pain 12/26/2022 Social History Tobacco Use Types Packs/Day Years Used Date Smoking Tobacco: Never Assessed Sex and Gender Information Value Date Recorded Sex Assigned at Not on file Legal Sex Male 10:34 AM [facility] Gender Identity Not on file [...] Vaccine (#1) 2025 Insurance [employer] Care Teams Chick Sexer Relationship Specialty Start Date End Date Sandy Orosco PCP - General 01/25/21
--- NOTE | 2025-02-20 13:45 | MHC.PC.OV ---
Vital Signs 02/20/25 13:49 Height 5 ft 3 in Weight 213 lb BMI 37.7 BP 134/80 Blood Pressure Location Rt brachial Position Sitting Respiration 15 Pulse 87 Pulse Source Pulse Oximeter Temp 98.3 F Temp Source Oral Pulse Oximetry (%) 98 Oxygen Delivery Method Room Air Intake Visit Reasons: 3m follow up Intake Note: Pt is here today for his 3mo. f/u Allergies Codeine Adverse Reaction (Unknown, Uncoded 02/20/25 14:05) nausea and vomiting Medication List - Last Reconciled 02/20/25 by Sandy Orosco MD aspirin (Adult Low Dose Aspirin) 81 mg PO DAILY blood sugar diagnostic (OneTouch Verio test strips) Check blood sugar as directed twice daily before meals blood sugar diagnostic (OneTouch Verio test strips) Check fasting glucose twice a day before meals empagliflozin (Jardiance) 25 mg PO QAM lancets (M. STEVES USATouch Delica Plus Lancet) test blood sugar twice a day lisinopril 20 mg PO DAILY metformin 1,000 mg PO BID 90 days pravastatin 10 mg PO BEDTIME tirzepatide (Mounjaro) 2.5 mg (0.5 mL) subcut QWEEK 30 days Tobacco use date assessed: 02/20/25 Dental Screening Dental Screen Date: 02/20/25 Did you have a dental visit in the last 12 months?: Yes Did you have a dental problem in the last 6 months where you did not have access to dental care?: No Was dental information given to patient?: Patient has dentist HPI 3m follow up HPI Details 59-year-old male with hypertension, dyslipidemia, diabetes mellitus currently on Mounjaro, metformin and Jardiance, here today for follow-up. With latest hemoglobin A1c is 6.4%, but patient has not lost any significant amount of weight on Mounjaro. Admits to being noncompliant in the last several weeks with his diet, and no regular exercise He also is here to have a lump on the medial aspect of his right foot check. This started after whenever fell on his leg approximately a month ago [facility] Medical History (Updated 02/20/25 @ 14:18 by Sandy Orosco MD) Diabetes mellitus, without long-term current use of insulin Essential hypertension Osteoarthritis, hip, bilateral Morbid obesity Dyslipidemia Surgical History S/P total left hip arthroplasty Hx of umbilical hernia repair Family History Father No problems noted. Brother No problems noted. Mother No problems noted. Social History Housing: House Alcohol intake: never Patient Tobacco Use Status: Never used Tobacco e-Cigarette/Vaping Use: Never Used Second Hand Smoke Exposure: No service: No Current occupational status: employed Cognitive needs: No Hearing needs: No Vision needs: Yes Questionnaire PHQ-9 Over the last 2 weeks, how often have you been bothered by any of the following problems? Depression Screening Interpretation: Negative Depression Screening Done: Yes Source: Developed by Drs. Real Page, Roxie Victor, Zbigniew Ceja and colleagues, with an educational victorino from [employer]. Thrive Questionnaire Date Thrive assessed: 11/11/24 I am a: Patient What is your living situation today?: I have a steady place to live Within the past 12 months, did the food you bought not last and you didn't have the money to get more?: Never true Within the past 12 months, did you worry whether your food would run out before you got money to buy more?: Never true Do you have trouble paying for medicines?: No Do you have trouble getting transportation to medical appointments?: No Do you have trouble paying your heating and electricity bill?: No Do you have trouble taking care of your child, family member or friend?: No Do you have trouble with day-to-day activities such as bathing, preparing meals, shopping, managing finances, etc.?: No Are you currently unemployed and looking for a job?: No Are you interested in more education?: No THRIVE Score: 0 AISHA-7 AMB Questionnaire AISHA-7 Date AISHA - 7 assessed: 11/18/24 Source: Developed by Drs. Real Page, Roxie Victor, Zbigniew Ceja and colleagues, with an educational victorino from [employer]. Review of Systems Const Denies malaise Eyes Details: goes to [employer] Denies change in vision Card Denies chest pain, Denies irregular heart rhythm, Denies lightheadedness, Denies palpitations, Denies dyspnea and Denies dyspnea on exertion Resp Denies cough, Denies pain on inspiration, Denies dyspnea, Denies dyspnea on exertion and Denies wheezing GI Denies abdominal pain, Denies melena, Denies change in bowel habits, Denies heartburn and Denies nausea Reports no additional complaints Musc Denies arthralgias, Denies joint swelling and Denies limited range of motion Skin/Breast Denies lesions and Denies rash Neuro Reports no additional complaints Psych Reports no additional complaints Endo Denies cold intolerance, Denies polyphagia, Denies polydipsia, Denies polyuria and Denies palpitations Jey/Lymph Denies easy bleeding and Denies easy bruising Aller/Immun Denies seasonal rhinorrhea and Denies wheezing Physical exam (Primary Care) Vital Signs: Last Vital Signs Temp 98.3 F 02/20/25 13:49 Pulse 87 02/20/25 13:49 Resp 15 02/20/25 13:49 BP 134/80 02/20/25 13:49 Pulse Ox 98 02/20/25 13:49 Oxygen Delivery Method Room Air 02/20/25 13:49 BMI result Body Mass Index 37.7 BMI Assessment/Plan discussion: High BMI High, discussed plan: lifestyle, weight reduction, dietary and physical activity Tobacco/Smoking Status: Tobacco use Status Tobacco use date assessed 02/20/25 02/20/25 13:48 Patient Tobacco Use Status Never used Tobacco 02/20/25 13:47 e-Cigarette/Vaping Use Never Used 02/20/25 13:47 Depression Screening Interpretation: Negative Thrive Assessment: Date of Thrive Assessment Date Thrive assessed 11/11/24 02/20/25 13:47 Const General: comfortable and alert Nutritional Appearance: obese morbidly obese Eyes Other: Langlois palpebral conjunctiva, anicteric, extraocular muscles full and intact Neck Neck: Yes full ROM, Yes no lymphadenopathy and Yes supple Thyroid: Thyroid normal Resp Effort & Inspection: normal respiratory effort and able to speak in complete sentences Auscultation: clear to auscultation bilaterally Cardio Rate: regular rate Rhythm: regular rhythm Heart sounds: S1 normal heart sound present and S2 normal heart sound present GI Inspection: Yes obesity Palpation (GI): Soft to palpation, nontender and no guarding Auscultation: normal bowel sounds General: Yes CVA tenderness Male General Exam: Yes normal external exam Back/Spine/Pelvis Back: CVA tenderness and No back tenderness Skin General skin exam: no rashes or lesions noted Neuro Other: alert oriented x3, no acute cardiorespiratory distress ambulatory with normal gait General: normal sensation to monofilament Extrem Other: Bony nontender mass palpated on medial aspect of right foot General: Yes full ROM, Yes no joint enlargement and Yes normal gait Results Reviewed Results Reviewed: Name: Aron Mar Age/Sex: 59/M : 1965 Unit#: [id number] Attend Dr: Sandy Orosco MD Re02/18/25 Status: DEP REF Location: [facility] Disch: SPEC : [id number] JAVIER: 02/18/25 STATUS: COMP REQ : [id number] RECD: 02/18/[address]: Sandy rOosco MD COMP: 02/18/25 ENTERED: 02/18/25-609 [facility] DR: ORDERED: Met Prof Fast, AST, ALT, Lipid Panel Test Result Flag Reference Sodium 139 135-145 mmol/L Potassium 5.0 3.3-5.1 mmol/L CL 106 96-108 mmol/L CO2 26 22-29 mmol/L Gap 12 12-20 BUN 20 H 9-16 mg/dL Creat 0.85 0.5-1.4 mg/dL eGFR > 60 Chronic Kidney Disease: Estimated GFR < 60 mL/min/1.73m2 Severe Kidney Disease: Estimated GFR < 15 mL/min/1.73m2 FBS 118 H 60-99 mg/dL A fasting glucose from 100-125 mg/dl is considered impaired (pre-diabetes). CA 9.0 # 8.4-10.2 mg/dL AST (GOT) 28 5-37 U/L ALT (GPT) 31 0-40 U/L Triglyceride 67 <150 mg/dL Desirable Triglyceride: less than 150 mg/dL Borderline High Triglyceride 150-199 mg/dL High Triglyceride: 200-499 mg/dL Very High Triglyceride: greater than or equal to 5OO mg/dL Cholesterol 148 <200 mg/dL Desirable Cholesterol: less than 200 mg/dL Borderline High Cholesterol: 200-239 mg/dL High Cholesterol: greater than 239 mg/dL LDL Calculated 81 <100 mg/dL Desirable LDL: less than 100 mg/dL Near Optimal/Above Optimal LDL: 110-129 mg/dL Borderline High LDL: 130-159 mg/dL High LDL: 160-189 mg/dL Very High LDL: greater than or equal to 190 mg/dL HDL 54 >40 mg/dL Desirable HDL: greater than 40 mg/dL Note: This HDL assay may give artificially low results in patients with liver disease. Laboratory Tests 10/17/24 02/18/25 06:19 06:10 Estimat Average Glucose 137 Hemoglobin A1c % 6.4 H Microalb/Creat Ratio 20.9 Coding Level of Care Code Est Pt Level 4 (02341) Diagnoses Diabetes mellitus, without long-term current use of insulin E11.9 Mass of right foot R22.41 Essential hypertension I10 Dyslipidemia E78.5 Assessment & Plan Assessment & Plan (1) Diabetes mellitus, without long-term current use of insulin: Code(s): E11.9 - Type 2 diabetes mellitus without complications Category: Medical Plan: Hemoglobin A1c went up to 6.4%. Continue with Mounjaro 2.5 mg injected once a week together with metformin 1000 mg twice a day and Jardiance 25 mg in the morning. Reinforced importance of following recommended diet and staying active getting regular exercise at least 30 minutes daily (2) Mass of right foot: Code(s): R22.41 - Localized swelling, mass and lump, right lower limb Plan: X-ray of right foot ordered (3) Essential hypertension: Code(s): I10 - Essential (primary) hypertension Category: Medical Plan: Blood pressure at goal of less than 130/80. Continue with lisinopril 20 mg daily. Reinforced importance of following a low sodium diet, getting regular exercise, and lowering stress levels. (4) Dyslipidemia: Code(s): E78.5 - Hyperlipidemia, unspecified Category: Medical Plan: Fasting lipids within normal limits, continue with atorvastatin 10 mg at bedtime Orders: Orders Hemoglobin A1c 06/07/25 E11.9 - Type 2 diabetes mellitus without complications, E78.5 - Hyperlipidemia, unspecified, I10 - Essential (primary) hypertension XR foot RT min 3V Today R22.41 - Localized swelling, mass and lump, right lower limb Alanine Aminotransferase 06/07/25 E11.9 - Type 2 diabetes mellitus without complications, E78.5 - Hyperlipidemia, unspecified, I10 - Essential (primary) hypertension Aspartate Amino Transferase 06/07/25 E11.9 - Type 2 diabetes mellitus without complications, E78.5 - Hyperlipidemia, unspecified, I10 - Essential (primary) hypertension Basic Metabolic Panel Fasting 06/07/25 E11.9 - Type 2 diabetes mellitus without complications, E78.5 - Hyperlipidemia, unspecified, I10 - Essential (primary) hypertension Lipid Panel 06/07/25 E11.9 - Type 2 diabetes mellitus without complications, E78.5 - Hyperlipidemia, unspecified, I10 - Essential (primary) hypertension
[2025-02-20 13:49] VITALS: BP 134/80; PULSE 87; RESP 15; TEMP 36.8; O2SAT 98; BMI 37.7
== END 2025-02-20 15:19 | disposition home or self-care (01) ==
LOC: HO.HMCC 13:39
PROVIDERS: PCP Internal Medicine; Visit Provider Internal Medicine
DX: E11.9 Type 2 diabetes mellitus without complications (principal); R22.41 Localized swelling, mass and lump, right lower limb; I10 Essential (primary) hypertension; E78.5 Hyperlipidemia, unspecified

== ENCOUNTER 2025-02-20 13:39 | Outpatient (REF) | payer OTHER, SELFPAY ==
--- NOTE | ~2025-02-20 | XR_ITS ---
EXAMINATION: XR FOOT 3 OR MORE VIEWS RIGHT HISTORY: R22.41 - Localized swelling, mass and lump, right lower limb COMPARISON: There are no prior studies available for comparison. FINDINGS: Three views of the right foot are submitted. Osseous mineralization is normal. There is no fracture or dislocation. The joint spaces are preserved. There are calcaneal spurs at the plantar aspect and at the insertion of the Achilles tendon. The soft tissues are unremarkable. XR/XR foot RT min 3V IMPRESSION: Calcaneal spurs as described. Otherwise unremarkable examination of the right foot. Electronically signed by: Real Rios MD 02/20/2025 03:36 PM EDT
== END 2025-02-20 13:40 | disposition home or self-care (01) ==
LOC: HO.HMGCX 13:39
PROVIDERS: PCP Internal Medicine; Visit Provider Internal Medicine
DX: R22.41 Localized swelling, mass and lump, right lower limb (principal); I10 Essential (primary) hypertension; E66.01 Morbid (severe) obesity due to excess calories; E78.5 Hyperlipidemia, unspecified; M77.31 Calcaneal spur, right foot; E11.9 Type 2 diabetes mellitus without complications
CPT/HCPCS: 73630

== ENCOUNTER → 2025-02-20 14:29 | Outpatient (BNV) | payer OTHER, SELFPAY | PROVIDERS: PCP Internal Medicine; Visit Provider Radiology Diagnostic Radiology | DX: M77.31 Calcaneal spur, right foot (principal) | CPT/HCPCS: 73630 ==

== ENCOUNTER 2025-06-13 06:01 | Outpatient (REF) | payer OTHER, SELFPAY ==
[2025-06-13 11:03] LABS: Alanine Aminotransferase 30 U/L (0-40); Anion Gap 11 (12-20); Aspartate Amino Transferase 29 U/L (5-37); Blood Urea Nitrogen 14 mg/dL (9-16); Calcium 8.8 mg/dL (8.4-10.2); Carbon Dioxide 29 mmol/L (22-29); Chloride 105 mmol/L (96-108); Cholesterol 127 mg/dL (<200); Estimated Glomerular Filt Rate > 60; HDL Cholesterol 47 mg/dL (>40); Potassium 4.1 mmol/L (3.3-5.1); Sodium 141 mmol/L (135-145); Triglycerides 56 mg/dL (<150)
== END 2025-06-13 06:02 | disposition home or self-care (01) ==
LOC: HO.HMGCLDS 06:01
PROVIDERS: PCP Internal Medicine; Visit Provider Internal Medicine
DX: I10 Essential (primary) hypertension (principal); E11.9 Type 2 diabetes mellitus without complications; E78.5 Hyperlipidemia, unspecified
CPT/HCPCS: 36415; 80048; 80061; 83036; 84450; 84460

== ENCOUNTER 2025-06-18 14:20 | Outpatient (AMB) | payer OTHER, SELFPAY ==
--- NOTE | 2025-06-18 14:35 | MHC.PC.OV ---
Vital Signs 06/18/25 14:42 Height 5 ft 3 in Weight 210 lb BMI 37.2 BP 132/80 Blood Pressure Location Rt brachial Position Sitting Respiration 16 Pulse 92 Pulse Source Pulse Oximeter Temp 98.4 F Temp Source Oral Pulse Oximetry (%) 97 Oxygen Delivery Method Room Air Intake Visit Reasons: PE, follow up lipids Intake Note: Pt is here today for his PE Director Prospect Required: No Allergies Codeine Adverse Reaction (Unknown, Uncoded 06/18/25 15:08) nausea and vomiting Medication List - Last Reconciled 06/18/25 by Sandy Orosco MD aspirin (Adult Low Dose Aspirin) 81 mg PO DAILY empagliflozin (Jardiance) 25 mg PO QAM lancets (TRUEplus Lancets) check blood sugar twice daily as directed lisinopril 20 mg PO DAILY metformin 1,000 mg PO BID 90 days pravastatin 10 mg PO BEDTIME tirzepatide (Mounjaro) 2.5 mg (0.5 mL) subcut QWEEK 30 days True Metrix Glucose Test Strip (blood sugar diagnostic) Check blood sugar twice daily as directed NS Tobacco use date assessed: 06/18/25 Dental Screening Dental Screen Date: 06/18/25 Did you have a dental visit in the last 12 months?: Yes Did you have a dental problem in the last 6 months where you did not have access to dental care?: No Was dental information given to patient?: Patient has dentist HPI PE, follow up lipids HPI Details 59-year-old male with past medical history significant for obesity, type 2 diabetes mellitus, dyslipidemia and hypertension, here today for his physical exam. Has been compliant with taking his medications, has been following recommended diet and has been active but not performing any regular exercise. Latest fasting labs showed diabetes mellitus, lipids well controlled, blood pressure stable and controlled on present treatment with lisinopril 20 mg daily. He is up-to-date with all his vaccines, but has never had a colon cancer screening done. [facility] Medical History Diabetes mellitus, without long-term current use of insulin Essential hypertension Osteoarthritis, hip, bilateral Morbid obesity Dyslipidemia Surgical History S/P total left hip arthroplasty Hx of umbilical hernia repair Family History Father No problems noted. Brother No problems noted. Mother No problems noted. Social History Housing: House Alcohol intake: never Patient Tobacco Use Status: Never used Tobacco e-Cigarette/Vaping Use: Never Used Second Hand Smoke Exposure: No service: No Current occupational status: employed Cognitive needs: No Hearing needs: No Vision needs: Yes Questionnaire PHQ-9 Over the last 2 weeks, how often have you been bothered by any of the following problems? 1. Little interest or pleasure in doing things: not at all 2. Feeling down, depressed, or hopeless: not at all 3. Trouble falling or staying asleep, or sleeping too much: several days 4. Feeling tired or having little energy: several days 5. Poor appetite or overeating: not at all 6. Feeling bad about yourself - or that you are a failure or have let yourself or your family down: not at all 7. Trouble concentrating on things, such as reading the newspaper or watching television: not at all 8. Moving or speaking so slowly that other people could have noticed. Or the opposite - being so fidgety or restless that you have been moving around a lot more than usual: not at all 9. Thoughts that you would be better off or of hurting yourself in some way: not at all Total score: 2 Depression Screening Interpretation: Negative Depression Screening Done: Yes Source: Developed by Drs. Real Page, Roxie Victor, Zbigniew Ceja and colleagues, with an educational victorino from [employer]. Thrive Questionnaire Date Thrive assessed: 11/11/24 I am a: Patient What is your living situation today?: I have a steady place to live Within the past 12 months, did the food you bought not last and you didn't have the money to get more?: Never true Within the past 12 months, did you worry whether your food would run out before you got money to buy more?: Never true Do you have trouble paying for medicines?: No Do you have trouble getting transportation to medical appointments?: No Do you have trouble paying your heating and electricity bill?: No Do you have trouble taking care of your child, family member or friend?: No Do you have trouble with day-to-day activities such as bathing, preparing meals, shopping, managing finances, etc.?: No Are you currently unemployed and looking for a job?: No Are you interested in more education?: No Please select the resources that you would like help with: None Currently or been in a relationship where the following occur: I choose not to answer THRIVE Score: 0 AUDIT C Alcohol Use Questionnaire (AUDIT-C) 1. How often do you have a drink containing alcohol?: Monthly or less 2. How many drinks containing alcohol do you have on a typical day when you are drinking?: 1 or 2 3. How often do you have six or more drinks on one occasion?: Never Total Score: 1 AISHA-7 AMB Questionnaire AISHA-7 Date AISHA - 7 assessed: 02/20/25 Feeling nervous, anxious, or on edge: 0 = Not at all Not being able to stop or control worryin = Not at all Worrying too much about different things: 0 = Not at all Trouble relaxin = Not at all Being so restless that it is hard to sit still: 0 = Not at all Becoming easily annoyed or irritable: 0 = Not at all Feeling afraid as if something awful might happen: 0 = Not at all Total AISHA-7 score (0-4 normal; 5-9 mild; 10-14 moderate; 15-21 severe): 0 Source: Developed by Drs. Real Page, Roxie Victor, Zbigniew Ceja and colleagues, with an educational victorino from [employer]. Review of Systems Const Denies malaise Eyes Details: goes to [facility] Denies change in vision ENT Reports no additional complaints Card Denies chest pain, Denies irregular heart rhythm, Denies lightheadedness, Denies palpitations, Denies dyspnea and Denies dyspnea on exertion Resp Denies cough, Denies pain on inspiration, Denies dyspnea, Denies dyspnea on exertion and Denies wheezing GI Denies abdominal pain, Denies melena, Denies change in bowel habits, Denies heartburn and Denies nausea Reports no additional complaints Musc Denies arthralgias, Denies joint swelling and Denies limited range of motion Skin/Breast Denies lesions and Denies rash Neuro Reports no additional complaints Psych Reports no additional complaints Endo Denies cold intolerance, Denies polyphagia, Denies polydipsia, Denies polyuria and Denies palpitations Jey/Lymph Denies easy bleeding and Denies easy bruising Aller/Immun Denies seasonal rhinorrhea and Denies wheezing Physical exam (Primary Care) Vital Signs: Last Vital Signs Temp 98.4 F 06/18/25 14:42 Pulse 92 06/18/25 14:42 Resp 16 06/18/25 14:42 BP 132/80 06/18/25 14:42 Pulse Ox 97 06/18/25 14:42 Oxygen Delivery Method Room Air 06/18/25 14:42 BMI result Body Mass Index 37.2 Tobacco/Smoking Status: Tobacco use Status Tobacco use date assessed 06/18/25 06/18/25 14:40 Patient Tobacco Use Status Never used Tobacco 06/18/25 14:37 e-Cigarette/Vaping Use Never Used 06/18/25 14:37 PHQ-9: PHQ-9 Score PHQ-9: Total score 2 06/18/25 14:40 Depression Screening Interpretation: Negative Thrive Assessment: Date of Thrive Assessment Date Thrive assessed 11/11/24 06/18/25 14:37 Currently or been in a relationship where the following occur: I choose not to answer Const General: comfortable and alert Nutritional Appearance: obese morbidly obese Eyes Other: [place] palpebral conjunctiva, anicteric, extraocular muscles full and intact Neck Neck: Yes full ROM, Yes no lymphadenopathy and Yes supple Thyroid: Thyroid normal Resp Effort & Inspection: normal respiratory effort and able to speak in complete sentences Auscultation: clear to auscultation bilaterally Cardio Rate: regular rate Rhythm: regular rhythm Heart sounds: S1 normal heart sound present and S2 normal heart sound present GI Inspection: Yes obesity Palpation (GI): Soft to palpation, nontender and no guarding Auscultation: normal bowel sounds General: Yes CVA tenderness Male General Exam: Yes normal external exam Back/Spine/Pelvis Back: CVA tenderness and No back tenderness Skin General skin exam: no rashes or lesions noted Neuro Other: alert oriented x3, no acute cardiorespiratory distress ambulatory with normal gait General: normal sensation to monofilament Extrem General: Yes full ROM, Yes no joint enlargement and Yes normal gait Psych Appearance: grossly normal and well kempt Mental Status: mental status grossly normal Speech and movement: Normal speech and movement present Affect: normal affect Results Reviewed Results Reviewed: Name: Aron Mar Age/Sex: 59/M : 1965 Unit#: [id number] Attend Dr: Sandy Orosco MD Re06/13/25 Status: DEP REF Location: [facility] Disch: SPEC : [id number] JAVIER: 06/13/25 STATUS: COMP REQ : [id number] RECD: 06/13/[address]: Sandy Orosco MD COMP: 06/13/25 ENTERED: 06/13/[address]: ORDERED: Met Prof Fast, AST, ALT, Lipid Panel Test Result Flag Reference Sodium 141 135-145 mmol/L Potassium 4.1 3.3-5.1 mmol/L CL 105 96-108 mmol/L CO2 29 22-29 mmol/L Gap 11 L 12-20 BUN 14 9-16 mg/dL Creat 0.88 0.5-1.4 mg/dL eGFR > 60 Chronic Kidney Disease: Estimated GFR < 60 mL/min/1.73m2 Severe Kidney Disease: Estimated GFR < 15 mL/min/1.73m2 FBS 113 H 60-99 mg/dL A fasting glucose from 100-125 mg/dl is considered impaired (pre-diabetes). CA 8.8 8.4-10.2 mg/dL AST (GOT) 29 5-37 U/L ALT (GPT) 30 0-40 U/L Triglyceride 56 <150 mg/dL Desirable Triglyceride: less than 150 mg/dL Borderline High Triglyceride 150-199 mg/dL High Triglyceride: 200-499 mg/dL Very High Triglyceride: greater than or equal to 5OO mg/dL Cholesterol 127 <200 mg/dL Desirable Cholesterol: less than 200 mg/dL Borderline High Cholesterol: 200-239 mg/dL High Cholesterol: greater than 239 mg/dL LDL Calculated 69 <100 mg/dL Desirable LDL: less than 100 mg/dL Near Optimal/Above Optimal LDL: 110-129 mg/dL Borderline High LDL: 130-159 mg/dL High LDL: 160-189 mg/dL Very High LDL: greater than or equal to 190 mg/dL HDL 47 >40 mg/dL Desirable HDL: greater than 40 mg/dL Note: This HDL assay may give artificially low results in patients with liver disease. Name: Aron Mar Age/Sex: 59/M : 1965 Unit#: [id number] Attend Dr: Sandy Orosco MD Re06/13/25 Status: DEP REF Location: [facility] Disch: SPEC : [id number] JAVIER: 06/13/25 STATUS: COMP REQ : [id number] RECD: 06/13/[address]: Sandy Orosco MD COMP: 06/13/25 ENTERED: 06/13/[address]: ORDERED: Hgb A1c Test Result Flag Reference A1c % 6.2 H <6.0 % Hemoglobin A1C Reference Range Adults: 4.8 - 6.0 % Non diabetic: < 6.0 % Goal: < 7.0 % Additional Action Suggested: > 8.0 % Note: Hemoglobin A1c results are invalid for patients with abnormal amounts of HbF. Blood transfusions may impact the HbA1c concentration in the patient sample. Est. Avg. Gluc 131 mg/dL eAG = Estimated average glucose which is %A1C expressed as average glucose, using the formula of the [id number] Average Glucose study (ADAG), Diabetes Care, Vol.31,#8, Mar. 2007 Coding Level of Care Code Est Pt Prev Care 40-64y(57040) Diagnoses Annual visit for general adult medical examination with abnormal findings Z00.01 Essential hypertension I10 Dyslipidemia E78.5 Diabetes mellitus, without long-term current use of insulin E11.9 Morbid obesity E66.01 Assessment & Plan Assessment & Plan (1) Annual visit for general adult medical examination with abnormal findings: Code(s): Z00.01 - Encounter for general adult medical examination with abnormal findings Plan: Recent fasting lab results reviewed with patient.. Recommended dental visit every 6 months and yearly eye exam for diabetes retinopathy screening, [place] [facility] [place]. Take adequate calcium in diet and vitamin-D 3 at 2000 IU per cap once a day, in addition to weight-bearing exercises to help maintain good muscle tone and weight control. Instructed to do self-testicular exam check for any mass. Up-to-date with all his vaccines. Cologuard ordered for colon cancer screening. (2) Essential hypertension: Code(s): I10 - Essential (primary) hypertension Category: Medical Plan: Blood pressure at goal of less than 130/80. Continue with current medication. Reinforced importance of following a low sodium diet, getting regular exercise, and lowering stress levels. (3) Dyslipidemia: Code(s): E78.5 - Hyperlipidemia, unspecified Category: Medical Plan: Fasting lipids are within normal limits, continued on pravastatin 10 mg at bedtime. (4) Diabetes mellitus, without long-term current use of insulin: Code(s): E11.9 - Type 2 diabetes mellitus without complications Category: Medical Plan: Recent lab results reviewed with patient, with sugar and hemoglobin A1c stable and at goal . Continue Mounjaro 2.5 mg once a week, in addition to metformin 1000 mg 1 tablet twice a day with meals and Jardiance 25 mg in the morning. Reinforced diabetic diet and regular exercise with patient. Counseled regarding importance of yearly diabetes retinopathy screening. Patient advised to inspect feet daily, for any signs of injury, callus or infection. Compliance with diet and regular exercise again stressed. Blood pressure goal is less than 130/80, goal LDL is less than 100 and goal hemoglobin A1c is less than 7% follow-up appointment made in-November 2025 after fasting labs done. (5) Morbid obesity: Code(s): E66.01 - Morbid (severe) obesity due to excess calories Category: Medical Plan: Discussed need to increase activity and weight reduction. Recommended focusing on improving health instead of dieting. Mediterranean diet is a healthy diet that helps, limit food high in fat, sugar, and calories. Eat slowly, pay attention to portion sizes, plan your meals ahead of time, start regular physical activity, at least 150 minutes of moderate intensity exercise, or 90 minutes per week of vigorous exercise. Continue on Mounjaro Orders: Referrals Cologuard Test Z12.11 - Encounter for screening for malignant neoplasm of colon, Z12.12 - Encounter for screening for malignant neoplasm of rectum
[2025-06-18 14:42] VITALS: BP 132/80; PULSE 92; RESP 16; TEMP 36.9; O2SAT 97; BMI 37.2
--- OUTSIDE RECORDS SUMMARY | 2025-06-18 17:32 | XMS_ITS | Clinical Summary ---
Author Organization [facility] Address [address] [place] [address] Care Team Providers Care Gas Attendant Name Role Phone Sallyandreina Sandy Primary Care Provider [phone] Active Problems Problem Noted Date Diagnosed Date Left hip pain 12/26/2022 Social History Tobacco Use Types Packs/Day Years Used Date Smoking Tobacco: Never Assessed Sex and Gender Information Value Date Recorded Sex Assigned at Not on file Legal Sex Male 10:34 AM [facility] Gender Identity Not on file Sexual Orientation Not on file Plan of Treatment Health Maintenance Due Date Last Done Comments CT Colonography 1965 Cologuard 1965 Colonoscopy 1965 Colorectal Cancer Screening 1965 FOBT/FIT 1965 Hepatitis C Screening 1965 Sigmoidoscopy 1965 MMR Vaccines (1 of 1 - Stand mimi series) 10/30/1964 PHQ-9 Depression Screen 1975 Annual Preventive Exam 10/30/1981 AISHA-7 Anxiety Screen 10/30/1981 DTaP,Tdap,and Td Vaccines (1 - Tdap) 10/30/1982 Pneumococcal Vaccine: 50+ Ye ars (1 of 2 - PCV) 10/30/1982 Zoster Vaccines (1 of 2) 10/30/2013 RSV Vaccine (SCDM) (1 - Risk 60-74 years 1-dose series) 2023 COVID-19 Vaccine ( - 2023-2 5 season) 2025 Influenza Vaccine (#1) 2025 Hepatitis B Vaccines Aged Out No long er eligible based on patient's age to complete this topic Insurance [employer] Care Teams Gas Attendant Relationship Specialty Start Date End Date Sandy Orosco PCP - General 01/25/21
== END 2025-06-18 15:12 | disposition home or self-care (01) ==
LOC: HO.HMCC 14:21
PROVIDERS: PCP Internal Medicine; Visit Provider Internal Medicine
DX: Z00.01 Encounter for general adult medical examination with abnormal findings (principal); E11.69 Type 2 diabetes mellitus with other specified complication; E66.01 Morbid (severe) obesity due to excess calories; Z68.37 Body mass index [BMI] 37.0-37.9, adult; I10 Essential (primary) hypertension; E78.5 Hyperlipidemia, unspecified